=== PATIENT | male | born 1950 | race Caucasian/White ===

== ENCOUNTER 2016-12-31 15:16 | Emergency (ER) | payer MEDICARE, MEDICAID ==
[2016-12-31 15:42] VITALS: BP 130/85
[2016-12-31] MEDS ORDERED: ALBUTEROL SULFATE/IPRATROPIUM 3 ML NEBU IH ONE ×2 (15:42→15:46)
--- NOTE | 2016-12-31 15:51 | ERNOTE ---
Dyspnea - Date Date of Service: 12/31/16 - General Presenting Symptoms: shortness of breath Source: patient Exam Limitations: no limitations - Immun/Allergies/Home Medications Immunizations: IMMUNIZATION HX Immunizations Up to Date Yes History of Influenza Vaccine No Hx Pneumococcal Vaccination No Allergies/Adverse Reactions: Allergies No Known Allergies Allergy (Verified 12/31/16 15:42) Home Medications: HOME MEDICATIONS Atorvastatin Calcium [Lipitor] 40 mg PO HS 10/01/15 [Last Taken Unknown] Lisinopril [Zestril] 20 mg PO DAILY 10/01/15 [Last Taken Unknown] Venlafaxine HCl [Effexor Xr] 375 mg PO DAILY 10/13/15 [Last Taken Unknown] traZODone HCL [Desyrel] 150 mg PO HS 10/13/15 [Last Taken Unknown] ALPRAZolam [Xanax] 0.5 mg PO BID PRN #0 tablet 10/14/15 [Last Taken Unknown] Aspirin [Aspirin Enteric Coated] 325 mg PO DAILY #30 tablet. 10/14/15 [Last Taken Unknown] Loperamide HCl [Imodium] 4 mg PO QID PRN #0 capsule 10/14/15 [Last Taken Unknown ] Metoprolol Tartrate [Lopressor] 25 mg PO BID #60 tab 10/14/15 [Last Taken Unknown] Proair Hfa 2 puff PO Q6H #1 10/14/15 [Last Taken Unknown] Sandostatin Lr 20 mg IM Q30D 10/14/15 [Last Taken Unknown] hydrOXYzine HCL [Atarax] 50 mg PO TID PRN #0 tablet 10/14/15 [Last Taken Unknown ] Oxycodone HCl/Acetaminophen [Oxycodone-Acetaminophen 5-325] 1 each PO Q6H PRN # 10 tablet 03/01/16 [Last Taken Unknown] Albuterol Sulfate/Ipratropium [Duoneb 2.5-0.5MG/3ML Soln] 3 ml IH Q4H PRN #150 vial 12/31/16 [Last Taken Unknown] Doxycycline Monohydrate 100 mg PO BID #20 tablet 12/31/16 [Last Taken Unknown] predniSONE [Prednisone] 3 tab PO DAILY #9 tab 12/31/16 [Last Taken Unknown] - History of Present Illness Narrative: Pt. comes in with c/o SOB for four months that is worsening. Pt. had a thoracotomy for a bleb and pleural effusion. Pt. denies any chest pain, fever, rhinorrhea, NVD, alleviating factors or aggravating factors. Pt. states that he takes his pro air and symbicort every one to two hours and is using one inhaler of each every 3-4 days without improvement. Review of Systems - Review of Systems Constitutional: Present: no symptoms reported. Absent: weakness, fatigue, malaise EYE: Present: no symptoms reported ENT: Present: no symptoms reported Respiratory: Present: shortness of breath, wheezing Cardiology: Present: no symptoms reported. Absent: chest pain, palpitations, edema Gastrointestinal/Abdominal: Present: no symptoms reported. Absent: nausea, vomiting, diarrhea Genitourinary: Present: no symptoms reported. Absent: frequency, decreased urinary output Musculoskeletal: Present: no symptoms reported. Absent: back pain, joint pain Skin: Present: no symptoms reported. Absent: rash, change in color Neurological: Present: no symptoms reported. Absent: headache, dizziness/light- headedness, numbness, tingling All Other Systems: All systems neg except as marked - Patient's Past Medical History Patient History - Medical: Anemia Patient History - Cardiac/Respiratory: COPD Patient History - Cancer: Colon, Surgical Treatment Patient History - Surgical Procedures: Appendectomy, Cholecystectomy, Colon Resection, T & A Patient History - Other: None - Family History Mother Family History - Medical: , No pertinent hx Family History - Cardiac/Respiratory: Coronary Heart Disease Father Family History - Medical: , No pertinent hx Family History - Cardiac/Respiratory: No pertinent hx - Social History Living Situations: home Abuse History: No History of abuse Psych History: No pertinent hx Smoking Status: Current every day smoker Alcohol Use: none Drug Use: none - Immunizations Immunizations Up to Date: Yes Hx Pneumococcal Vaccination: No History of Influenza Vaccine: No Physical Exam - Physical Exam General Appearance: Present: wd/wn, alert, no apparent distress Eye Exam: Normal inspection: bilateral, PERRL: bilateral, EOMI: bilateral Ears, Nose, Throat: Present: normal ENT inspection, normal pharynx Neck: Present: normal inspection, nontender. Absent: lymphadenopathy (R), lymphadenopathy (L) Respiratory: Present: no respiratory distress, no accessory muscle use, chest nontender, decreased breath sounds - R lung. Absent: crackles, rales, rhonchi, wheezing Cardiovascular/Chest: Present: regular rate, rhythm, no murmur, normal peripheral pulses Gastrointestinal/Abdominal: Present: normal bowel sounds, nontender, nondistended, soft, no organomegaly Back Exam: Present: normal inspection, normal range of motion, no CVA tenderness , no vertebral tenderness Extremity Exam: Present: normal inspection Neurological Exam: Present: alert, oriented, normal mood/affect, no motor/ sensory deficits Skin Exam: Present: normal color, warm/dry. Absent: pallor, skin rash ED Progress - Date and Time Seen: Date and Time: 12/31/16 18:17 Pt. 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 - Results and Orders Patient's Lab Results:: I have reviewed the patient's lab results. Results and Orders: elevated D Dimer - Vital Signs Patient's Vital Signs:: I have reviewed the patient's vital signs. Vital Signs: Vital Signs 12/31/16 15:38 Temperature 35.6 C L Pulse Rate 102 H Respiratory 20 Rate Blood Pressure 130/85 O2 Sat by Pulse 96 Oximetry - EKG EKG: NSR, nonspecific ST T wave changes EKG read: Interp. by me EKG Comments: no acute. - X-Ray X-Ray #1 X-Ray: chest Interpretation: Reviewed by me X-ray Comments: stable findings of lung scarring, pleural thickening, air filled cystlike cavity over R lung base near costophrenic angle, trace L sided pleural effusion unchanged - CT/Ultrasound CT/Ultrasound Narrative: CT without pulmonray embolus. Moderate L sided pleural effusion - Progress/Reassessment Chief Complaint: Dyspnea Progress:: Unchanged Departure Clinical Impression: Pleural effusion, Dehydration, mild COPD (chronic obstructive pulmonary disease) Qualifiers: COPD type: unspecified COPD Qualified Code(s): J44.9 - Chronic obstructive pulmonary disease, unspecified - Departure Disposition: Home self-care Condition: Good Instructions: Pleural Effusion, Chronic Obstructive Pulmonary Disease, Easy-to- Read Additional Instructions: Increase fluid intake. 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 Call tomorrow am for these appointments. Referrals: Morris Echevarria MD [Primary Care Provider] - Prescriptions: Albuterol Sulfate/Ipratropium [Duoneb 2.5-0.5MG/3ML Soln] 3 ml IH Q4H PRN #150 vial PRN Reason: Wheezing Doxycycline Monohydrate 100 mg PO BID #20 tablet predniSONE [Prednisone] 3 tab PO DAILY #9 tab
--- OUTSIDE RECORDS SUMMARY | 2016-12-31 15:57 | XMS REPORT | Continuity of Care Document ---
:1950 Author Organization [facility] ([facility]) [place] [address] Phone [phone] Care Team Providers Name Role Phone EvanDariusMatthew Morris Primary Care Provider [phone] Source Comments This disclosure is being made pursuant to the Care Everywhere program, applicable federal and state laws, and may not contain all informaitonavailable regarding this patient.[facility] ([facility]) Active Allergies and Adverse Reactions No Known Allergies Current Medications Prescription Sig. Disp. Refills Start Date End Date Status lisinopril 20 mg Take 20 mg by mouth Active tablet daily. octreotide inject 5 mL 20 mL 11 04/24/2013 Active (SandoSTATIN LAR intramuscularly once. DEPOT) 20 mg Take every four injection weeks. Indications: CARCINOID SYNDROME ALPRAZolam 0.5 mg Take 0.5 mg by mouth 0 09/14/2015 Active tablet 2 times daily as needed. venlafaxine 150 mg Take 300 mg by mouth 3 09/30/2015 Active XR capsule daily. venlafaxine 75 mg Take 75 mg by mouth 3 09/29/2015 Active XR capsule daily. aspirin 325 mg EC Take 325 mg by mouth Active tablet daily. naproxen sodium Take 220 mg by mouth Active (ALEVE) 220 mg 2 times daily as tablet needed. atorvastatin 40 mg Take 40 mg by mouth Active tablet daily. albuterol 90 Use 2 Puffs by Active mcg/Actuation inhalation every 6 inhaler hours as needed. metoPROLol tartrate Take 25 mg by mouth 2 Active 25 mg tablet times daily. budesonide-formoter Use 2 Puffs by Active ol (SYMBICORT) inhalation 2 times 160-4.5 daily. mcg/Actuation inhaler acetaminophen 325 Take 2 tablets (650 60 tablet 2 07/18/2016 Active mg tablet mg total) by mouth every 4 hours. Carica Papaya Take 3 tablets by 90 tablet 11 10/01/2016 Active (PAPAYA ENZYME) tab mouth 3 times daily before meals. pancrelipase (CREON Take 1 capsule by 90 capsule 11 11/04/2016 Active 12,000) mouth 3 times daily 12,000-38,000 with meals. 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, unspecified 11/28/20082011 portion Abdominal pain, unspecified site 07/09/2008 04/05/2012 Malignant neoplasm of colon, unspecified site 07/03/2008 04/05/2012 Most Recent Encounters Date Type Specialty Providers Description 12/17/2016 Office Visit Med Hematology and Narciso Howard Chief Comp: Patient Oncology MD Reported Reason For Geri Jenkins Visit MD Eduardo 11/10/2016 Refill Hematology and Laura Montes Chief Comp: Medication Oncology A Change 11/04/2016 Office Visit [facility]io Colon and Narciso Howard Dx: Pancreatic Oncology insufficiency (Primary Dx) 11/04/2016 [place] [facility] Dx: Carcinoid tumor Kobe Mckeon MD 11/04/2016 Hospital Radiology Jitendra Granados Chief Comp: Patient Encounter MD Graeme Reported Reason For Visit 11/03/2016 Hospital Radiology Narciso Howard Chief Comp: Patient Encounter Reported Reason For Visit 11/03/2016 Hospital Radiology Jitendra Granados Dx: Neuroendocrine Encounter MD Graeme malignancy 11/03/2016 Hospital Radiology Morris Freitas Dx: Carcinoid tumor Encounter 11/03/2016 Office Visit Med Hematology and Narciso Howard Dx: Carcinoid tumor Oncology 10/19/2016 Telephone Med Hematology and Danielle Lovett Chief Comp: Oncology Information Before Appointment 10/14/2016 [place] [facility] Narciso, Chief Comp: Patient MD Reported Reason For Kobe Pablo MD Visit 10/14/2016 Office Visit Med Hematology and Narciso Howard Chief Comp: Patient Oncology MD Reported Reason For Visit 10/08/2016 [facility] Chief Comp: Scheduling 10/06/2016 [facility] Chief Comp: Error 10/05/2016 Telephone [facility]dy Dx: Neuroendocrine D, RN malignancy (Primary Dx) Immunizations Name Dates Previously Given Next Due Influenza, unspecified 09/17/2008 Pneumococcal Polysaccharide, PPSV23 (Pneumovax 23) 07/16/2016 Social History Tobacco Use Types Packs/Day Years Used Date Current Every Day Smoker Cigarettes 0.25 30 Smokeless Tobacco: Never Used Tobacco Cessation:Ready to Quit: No Comments: Alcohol Use Drinks/Week oz/Week Comments No Last Filed Vital Signs Vital Sign Reading Time Taken Blood Pressure 140/88 11/04/2016 3:41 PM [employer] Pulse 79 11/04/2016 3:41 PM [employer] Temperature 36.7 C (98.1 F) 11/04/2016 3:41 PM [employer] Respiratory Rate 17 10/01/2016 12:37 PM [employer] Height 1.778 m (5' 10") 11/03/2016 9:10 AM [employer] Weight 63.9 kg (140 lb 14 oz) 11/04/2016 3:41 PM [employer] Body Mass Index 20.21 11/04/2016 3:41 PM [employer] Oxygen Saturation 97% 11/04/2016 3:41 PM [employer] Plan of Care Health Maintenance Due Date Last Done Comments Hepatitis B Vaccine (1 of 3 - Primary Series) 1950 Tdap Vaccine 1963 Lipid Disorder Screening 1970 Td Vaccine 1970 Prostate Cancer Screening 06/25/2009 06/25/2008 Zoster Vaccine 2012 Influenza Vaccine: Seasonal (#1) 06/01/2016 09/17/2008 Pneumococcal Vaccine (2 of 3 - PCV13) 07/16/2017 07/16/2016 Colonoscopy 12/03/2025 12/03/2015 HCV Screening Completed 01/10/2009 Results from Last 3 Months NUC TUMOR W.BODY (2-DAY) SPECT/CT IN-111 OCTREO ([id number]) (11/04/2016 2:31 PM) Impressions Impression: 1. Extensive abdominal metastatic disease with grade 4 uptake, including RLQ small bowel masses (near anastomotic surgical bed), right external iliac and peripancreatic lymph nodes, suspected peritoneal implants along liver dome. 2. Thoracic metastatic disease with grade 4 uptake, including right cardiophrenic and multiple bilateral (right greater than left) mediastinal lymph nodes. Narrative Procedure: NUC TUMOR W.BODY (2-DAY) SPECT/CT IN-111 OCTREO ([id number]) Octreoscan Single Photon Emission Computed Tomography. Indication: Patient with neuroendocrine malignancy. Stage disease.. Additional history per Epic-right lung decortication Procedure: Approximately 4 hrs after administration of In-111 Pentetreotide 5.24 mCi IV on 11/03/2016, anterior and posterior whole body planar images were obtained along with SPECT imaging of the abdomen. After a 24 hr uptake period, additional whole body planar images were acquired along with SPECT-CT imaging of the chest, abdomen, and pelvis. Low dose CT images were used for anatomic correlation and attenuation correction. Comparison: CT chest abdomen and pelvis from November 03, 2016. Findings: Extensive disease with grade 4 radiotracer uptake is seen in the abdomen and mediastinum. Specifically, abdomen shows small bowel lesions in the right lower quadrant (RLQ) and around anastomotic changes, enlarged peripancreatic and right external iliac lymph nodes, as well as several foci of uptake consistent with peritoneal implants along the dome of the liver. Chest specifically shows several lymph nodes along the right internal thoracic chain, as well as right cardiophrenic, right upper paratracheal, and left interval thoracic chain lymph nodes. Postsurgical changes are also redemonstrated with right pulmonary parenchymal volume loss and pneumothorax. Procedure Note Jerald, Incoming Imaging Results - [facility] Nov 05, 2016 11:50 AM [employer] Procedure: NUC TUMOR W.BODY (2-DAY) SPECT/CT IN-111 OCTREO ([id number]) Octreoscan Single Photon Emission Computed Tomography. Indication: Patient with neuroendocrine malignancy. Stage disease.. Additional history per Epic-right lung decortication Procedure: Approximately 4 hrs after administration of In-111 Pentetreotide 5.24 mCi IV on 11/03/2016, anterior and posterior whole body planar images were obtained along with SPECT imaging of the abdomen. After a 24 hr uptake period, additional whole body planar images were acquired along with SPECT-CT imaging of the chest, abdomen, and pelvis. Low dose CT images were used for anatomic correlation and attenuation correction. Comparison: CT chest abdomen and pelvis from November 03, 2016. Findings: Extensive disease with grade 4 radiotracer uptake is seen in the abdomen and mediastinum. Specifically, abdomen shows small bowel lesions in the right lower quadrant (RLQ) and around anastomotic changes, enlarged peripancreatic and right external iliac lymph nodes, as well as several foci of uptake consistent with peritoneal implants along the dome of the liver. Chest specifically shows several lymph nodes along the right internal thoracic chain, as well as right cardiophrenic, right upper paratracheal, and left interval thoracic chain lymph nodes. Postsurgical changes are also redemonstrated with right pulmonary parenchymal volume loss and pneumothorax. IMPRESSION Impression: 1. Extensive abdominal metastatic disease with grade 4 uptake, including RLQ small bowel masses (near anastomotic surgical bed), right external iliac and peripancreatic lymph nodes, suspected peritoneal implants along liver dome. 2. Thoracic metastatic disease with grade 4 uptake, including right cardiophrenic and multiple bilateral (right greater than left) mediastinal lymph nodes. CT CHEST ABDOMEN PELVIS W CONTRAST ([id number], [id number]) (11/03/2016 10:35 AM) Impressions Impression: 1. Interval evacuation of previous right pleural effusion, moderate sized loculated right pneumothorax still remains compared to chest CT of 07/03/2016.. 2. New small left pleural effusion. 3. Persistent groundglass nodules in the right lung and left upper lobe may be infectious or metastatic. 4. Stable right pleural and pericardial metastases. 5. Differential perfusion abnormality versus areas of fatty infiltration in both lobes of liver. 6. Stable suspected metastatic lesion in the right hepatic lobe. Previous suspected metastatic lesion in segment 4A less conspicuous. 7. Interval mild increase in size in peritoneal carcinomatosis at the inferior tip of the liver and along the right lower quadrant. 8. Slightly larger mesenteric lymphadenopathy. 9. Right hemicolectomy. Narrative Procedure: CT CHEST ABDOMEN PELVIS W CONTRAST ([id number], [id number]) Clinical Indication: Ileal carcinoid. Rule out progression. Pleural-based nodules. Metastatic to multiple sites. Right pleural effusion and possible lung nodules History of right hydropneumothorax and chest tube. Technique: CT exam of the chest, abdomen, and pelvis is performed following the uneventful administration of 123 cc Isovue-370 IV contrast. No enteric contrast.Biphasic liver protocol is performed. Comparison: CT abdomen and pelvis 04/08/2016. Most recent chest CT 07/03/2016. Findings: Neck base and axilla: No lymphadenopathy. Mediastinum and ez: No lymphadenopathy. Heart and thoracic aorta: Stable enlarged enhancing pericardial lymph nodes. Airway: Patent ungs and pleura: Compared to prior chest CT of July 03, 2016, there is a loculated right pneumothorax laterally and at the right lung apex. No significant right pleural effusion. There is extensive right pleural thickening. Scarring andfibrosis peripherally along the right lung but previous consolidation in the right lung base has improved. Persistent small nodules measuring up to 5 mm in the right upper lobe. Persistent nodular thickening in the left upper lobe. New small left pleural effusion. Stable 2.4 cm enhancing pleural-based nodule. Series 6, image 73. Esophagus: Normal. Chest wall soft tissues: Normal Liver: Differential perfusion enhancement throughout the liver that normalizes on the delays. Stable 1.2 cm enhancing lesion in the inferior right hepatic lobe segment 6. Series 2, image 43 partially obscured by the adjacent differential enhancement. Previous segment 4A enhancing lesion not well seen on the current exam. Increased enhancing soft tissue at the inferior tip of the right hepatic lobe. Series 6, image 134, measuring 2.4 x 2.7 cm. Bile ducts: Not dilated. Gallbladder: Surgically absent Pancreas: Normal Spleen: Normal Adrenal glands: Normal Kidneys: Stable left renal cyst. Ureters: Normal Bladder: Normal Aorta: Nonaneurysmal Retroperitoneum: Larger portacaval node measuring 1 cm, prior measuring 0.8 cm. Peritoneum: Slightly larger peritoneal soft tissue mass anteriorly measuring 3.2 x 5 cm, prior measuring 3.4 x 4.2 cm. Series 6, image 158. Other enhancing peritoneal nodules extending from the falciform ligament of the liver inferiorly are also slightly larger. Other small peritoneal nodules in the left lower quadrant also slightly larger. No large volume ascites. Mesentery: Mildly enlarged mesenteric lymphadenopathy , slightly larger. Stomach: Not distended. Small bowel: Right hemicolectomy with normal appearance of the anastomosis. Peritoneal nodules again noted adjacent to the anastomosis. Small bowel is not dilated. Colon: Decompressed. Appendix: Surgically absent. Extraperitoneal pelvis: Larger right external iliac lymphadenopathy, largest measuring 1.5 cm short axis, prior measuring 1.2 cm short axis. Prostate: Enlarged Abdominal wall: Normal Bones: Postsurgical changes of thoracotomy in posterior right 8th rib. No acute fracture. Procedure Note Jerald, Incoming Imaging Results - Tue Nov 03, 2016 1:45 PM [employer] Procedure: CT CHEST ABDOMEN PELVIS W CONTRAST ([id number], [id number]) Clinical Indication: Ileal carcinoid. Rule out progression. Pleural-based nodules. Metastatic to multiple sites. Right pleural effusion and possible lung nodules History of right hydropneumothorax and chest tube. Technique: CT exam of the chest, abdomen, and pelvis is performed following the uneventful administration of 123 cc Isovue-370 IV contrast. No enteric contrast.Biphasic liver protocol is performed. Comparison: CT abdomen and pelvis 04/08/2016. Most recent chest CT 07/03/2016. Findings: Neck base and axilla: No lymphadenopathy. Mediastinum and ez: No lymphadenopathy. Heart and thoracic aorta: Stable enlarged enhancing pericardial lymph nodes. Airway: Patent ungs and pleura: Compared to prior chest CT of July 03, 2016, there is a loculated right pneumothorax laterally and at the right lung apex. No significant right pleural effusion. There is extensive right pleural thickening. Scarring and fibrosis peripherally along the right lung but previous consolidation in the right lung base has improved. Persistent small nodules measuring up to 5 mm in the right upper lobe. Persistent nodular thickening in the left upper lobe. New small left pleural effusion. Stable 2.4 cm enhancing pleural-based nodule. Series 6, image 73. Esophagus: Normal. Chest wall soft tissues: Normal Liver: Differential perfusion enhancement throughout the liver that normalizes on the delays. Stable 1.2 cm enhancing lesion in the inferior right hepatic lobe segment 6. Series 2, image 43 partially obscured by the adjacent differential enhancement. Previous segment 4A enhancing lesion not well seen on the current exam. Increased enhancing soft tissue at the inferior tip of the right hepatic lobe. Series 6, image 134, measuring 2.4 x 2.7 cm. Bile ducts: Not dilated. Gallbladder: Surgically absent Pancreas: Normal Spleen: Normal Adrenal glands: Normal Kidneys: Stable left renal cyst. Ureters: Normal Bladder: Normal Aorta: Nonaneurysmal Retroperitoneum: Larger portacaval node measuring 1 cm, prior measuring 0.8 cm. Peritoneum: Slightly larger peritoneal soft tissue mass anteriorly measuring 3.2 x 5 cm, prior measuring 3.4 x 4.2 cm. Series 6, image 158. Other enhancing peritoneal nodules extending from the falciform ligament of the liver inferiorly are also slightly larger. Other small peritoneal nodules in the left lower quadrant also slightly larger. No large volume ascites. Mesentery: Mildly enlarged mesenteric lymphadenopathy , slightly larger. Stomach: Not distended. Small bowel: Right hemicolectomy with normal appearance of the anastomosis. Peritoneal nodules again noted adjacent to the anastomosis. Small bowel is not dilated. Colon: Decompressed. Appendix: Surgically absent. Extraperitoneal pelvis: Larger right external iliac lymphadenopathy, largest measuring 1.5 cm short axis, prior measuring 1.2 cm short axis. Prostate: Enlarged Abdominal wall: Normal Bones: Postsurgical changes of thoracotomy in posterior right 8th rib. No acute fracture. IMPRESSION Impression: 1. Interval evacuation of previous right pleural effusion, moderate sized loculated right pneumothorax still remains compared to chest CT of 07/03/2016.. 2. New small left pleural effusion. 3. Persistent groundglass nodules in the right lung and left upper lobe may be infectious or metastatic. 4. Stable right pleural and pericardial metastases. 5. Differential perfusion abnormality versus areas of fatty infiltration in both lobes of liver. 6. Stable suspected metastatic lesion in the right hepatic lobe. Previous suspected metastatic lesion in segment 4A less conspicuous. 7. Interval mild increase in size in peritoneal carcinomatosis at the inferior tip of the liver and along the right lower quadrant. 8. Slightly larger mesenteric lymphadenopathy. 9. Right hemicolectomy. HEMOGLOBIN A1C (11/03/2016 9:26 AM) Component Value Range Hemoglobin A1c 6.3(H)Comment: 4.8-6.0 % Glycemic Control Guidelines: Non-diabetic <6% Goal <7% Therapeutic Action >8% Estimated Average Glucose 134Comment: mg/dL The estimated average glucose (eAG) calculated from the HbA1c changed on 20/06.See Laboratory Bulletins in the Department of Pathology Laboratory Services Handbook for a full discussion.Not e that the new calculated glucose will now be lower.The A1c result is unchanged. Specimen Supernatant DIFFERENTIAL (11/03/2016 9:25 AM) Component Value Range % Neutrophils-Auto Diff 62.6 % Neutrophils-Auto Diff 6540 1773-4084 /MM3 % Lymphocytes-Auto Diff 17.5 % Lymphocytes-Auto Diff 1977 460-9306 /MM3 % Monocytes-Auto Diff 8.3 % Monocytes-Auto Diff 870(H) 130-860 /MM3 % Eosinophils-Auto Diff 10.8 % Eosinophils-Auto Diff 1130(H) 40-390 /MM3 % Basophils 0.5 % Basophils-Auto Diff 50 10-136 /MM3 % Immature Granulocytes-Auto Diff 0.3 % Immature Granulocytes-Auto Diff 30 /MM3 Specimen Blood CBC (COMPLETE BLOOD COUNT) (11/03/2016 9:25 AM) Component Value Range WBC Count 10.5 3.7-10.5 K/MM3 RBC Count 4.55 4.50-6.20 M/MM3 Hemoglobin 11.6(L) 13.2-17.7 g/dL Hematocrit 37(L) 40-52 % MCV (Mean Corpuscular Volume) 82 82-99 FL MCH (Mean Corpuscular Hemoglobin) 26 25-35 PG MCHC (Mean Corpuscular Hemoglobin Concentration) 31(L) 32-36 % Platelet Count 406(H) 150-400 K/MM3 MPV (Mean Platelet Volume) 9.4 9.4-12.3 FL RBC Dist Width-STD 48.4(H) 35.1-43.9 FL RBC Distrib Width 16.0(H) 9.0-14.5 % Nucleated RBC 0 /100 WBC Specimen Blood VITAMIN D, 25-HYDROXY (11/03/2016 9:25 AM) Component Value Range Vitamin D, 25-OH 20Comment: 20-80 ng/mL This assay accurately quantifies the sum of 25-hydroxyvitamin D3 and 25- hydroxyvitamin D2. Endocrine Society, [place] [employer] (IOM), and World Health Organization (WHO) guidelines designate 25-h ydroxyvitamin D plasma concentrations below 20 ng/mL as deficient, based on increased frequency of adverse outcomes (e.g., osteoporotic fractures). 25-Hydroxyvitamin D reference ranges are a controversial topic, with some authorities suggesting optimal concentrations should be 30 ng/mL or higher based on correlations of 25-hydroxyvitamin D plasma concentrations with physiological parameters such as parathyroid hormone or calcium concentrations. However, optimal 25-hydroxyvitamin D concentrations greater than 20 ng/mL may be considered for specific disease conditions. Vitamin D toxicity is uncommon but may be seen at 25-hydroxyvitamin D concentrations greater than 150 ng/mL. Specimen Blood OCTREOTIDE DRUG LEVEL (11/03/2016 9:25 AM) Component Value Range Octreotide 727Comment:This is an appended report. These results have been pg /mL appended to a previously final verified report. Octreotide OCTREOTIDE/SANDOSTATIN: 727 pg/mL (Plasma/Serum) Expected levels of Octreotide administered by pump: 60 mg/month: 10,000 pg/mL +/-2,500 pg/mL 30 mg/month: 5,000 pg/mL +/-2,500 pg/mL Octreotide administered as Sandostatin LAR: 120 mg/month: 9,000 pg/mL +/-2,000 pg/mL 60 mg/month: 5,000 pg/mL +/-2,000 pg/mL 30 mg/month: 2,500 pg/mL +/-1,500 pg/mL Octreotide administered by subcutaneous injection: Measurement of plasma Octreotide is not recommended for individuals using multiple daily Octreotide injections due to the short 1/2 life of Octreotide in the plasma ( approximately 90 - 120 minutes). Disclaimer: The choice of a specific dose of Octreotide is at the discretion of the individual treating physician. And should take into account the patient' s individual clinical situation. This test was developed and its performance characteristics determined by [employer]. It has not been cleared or approved by the U.S.Food and Drug Administration. The FDA has determined that such clearance or approval is not necessary. Sandostatin is a registered trademark of [employer]. Analysis performed by [employer], [address] [place] [address]. [id number] Specimen Blood PANCREASTATIN (11/03/2016 9:25 AM) Component Value Range Pancreastatin 835(H)Comment: 10-135 pg/mL This test was developed and its performance characteristics determined by [employer]. It has not been cleared or approved by the US Food and Drug Administration. The FDA has determined that such clearance or approval is not necessary. Specimen Blood SEROTONIN, BLOOD (11/03/2016 9:25 AM) Component Value Range Serotonin, Blood 1384(H)Comment: 50-200 ng/mL TEST INFORMATION:Serotonin Whole Blood Test developed and characteristics determined by [facility]. See Compliance Statement B: [employer] Performed by [facility], [address] [place] [id number] [email or web address], Can Hoskins MD, Lab. Director Specimen Blood Narrative Source: BLOOD Client Accession number: [id number] NEUROKININ A (SUBSTANCE K) (11/03/2016 9:25 AM) Component Value Range Neurokinin A (Substance K) 25Comment: <=40 pg/mL This test was developed and its performance characteristics determined by [employer]. It has not been cleared or approved by the US Food and Drug Administration. The FDA has determined that such clearance or approval is not necessary. Specimen Blood CHROMOGRANIN A (11/03/2016 9:25 AM) Component Value Range Chromogranin A 2090(H)Comment: 0-95 ng/mL INTERPRETIVE INFORMATION:Chromogranin A This test is performed using the PWA [id number] kit. Results obtained with different methods or kits cannot be used interchangeably. See Compliance Statement D: [employer]/ Performed by [facility], [address] [place] [id number] [email or web address], Can Hoskins MD, Lab. Director Specimen Blood Narrative Source: BLOOD Client Accession number: [id number] TRIIODOTHYRONINE - FREE (11/03/2016 9:25 AM) Component Value Range T3, Free 1.97(L) 2.57-4.43 pg/mL Specimen Blood THYROXINE - FREE (11/03/2016 9:25 AM) Component Value Range Free T4 (Thyroxine) 1.06 0.80-1.80 ng/dL Specimen Blood THYROID STIMULATING HORMONE (11/03/2016 9:25 AM) Component Value Range TSH 1.82 0.27-4.20 IU/mL Specimen Blood CBC WITH DIFFERENTIAL (11/03/2016 9:25 AM) Specimen Blood Narrative The following orders were created for panel order CBC WITH DIFFERENTIAL. Procedure Abnormality Status --------- ------ CBC (COMPLETE BLOOD COUNT)[[id number]] AbnormalFinal result DIFFERENTIAL[[id number]] AbnormalFinal result Please view results for these tests on the individual orders. CHLORIDE (11/03/2016 9:25 AM) Component Value Range Chloride 102 95-107 mEq/L Specimen Blood BLOOD UREA NITROGEN (11/03/2016 9:25 AM) Component Value Range BUN 13 10-20 mg/dL Specimen Blood ASPARTATE AMINOTRANSFERASE (11/03/2016 9:25 AM) Component Value Range AST 11Comment: 0-40 U/L Adult reference ranges updated on 09/26/13 at 830am Specimen Blood ALANINE AMINOTRANSFERASE (11/03/2016 9:25 AM) Component Value Range ALT 6Comment: 0-41 U/L The upper limit of normal for alanine aminotransferase (ALT) reference ranges for adults is controversial with some authorities recommending limit as low as 30 U/L for males and 19 U/L for females. Th ere is increased incidence of subclinical liver disease (e.g., early steatohepatitis) in patients with ALT values in the range of 31-41 U/L for males and 20-33 U/L for females. ALT values should alway s be interpreted in conjunction with clinical history, physical examination findings, and, if applicable, data from other diagnostic tests. Specimen Blood SODIUM (11/03/2016 9:25 AM) Component Value Range Sodium 144 135-145 mEq/L Specimen Blood TOTAL PROTEIN (11/03/2016 9:25 AM) Component Value Range Total Protein 8.2(H) 6.0-8.0 g/dL Specimen Blood POTASSIUM (11/03/2016 9:25 AM) Component Value Range Potassium 4.4 3.5-5.0 mEq/L Specimen Blood ALKALINE PHOSPHATASE (11/03/2016 9:25 AM) Component Value Range ALP 94 40-129 U/L Specimen Blood GLUCOSE (11/03/2016 9:25 AM) Component Value Range Glucose 132(H)Comment: 65-99 mg/dL The Expert Committee on the Diagnosis and Classification of Diabetes has defined impaired fasting glucose as greater than or equal to 100 mg/dL but less than 126 mg/dL.(Diabetes Care 28 (Suppl 1)S41,2005) Specimen Blood CREATININE (11/03/2016 9:25 AM) Component Value Range Creatinine 1.3(H)Comment: 0.6-1.2 mg/dL Creatinine switched to enzymatic method on 03/10/2011.GFR equation switched to IDMS-traceable MDRD equation on 03/10/2011. Calculated GFR values are not valid in clinical settings where serum creatinine is changing. Calculated GFR 56(L) >60 mL/min/1.73 m2 Specimen Blood CO2 (11/03/2016 9:25 AM) Component Value Range CO2 27 22-29 mEq/L Anion Gap 15 8-18 mEq/L Specimen Blood CALCIUM (11/03/2016 9:25 AM) Component Value Range Calcium 9.3 8.5-10.5 mg/dL Specimen Blood BILIRUBIN, TOTAL (11/03/2016 9:25 AM) Component Value Range Bilirubin Total 0.4 <=1.2 mg/dL Specimen Blood ALBUMIN (11/03/2016 9:25 AM) Component Value Range Albumin 3.9 3.4-4.8 g/dL Specimen Blood
[2016-12-31 16:05] LABS: Hematocrit 38.3 % (42.0-52.0); Mean Cell Volume 81.1 fl (78-100); Mean Corpuscular Hemoglobin 25.4 pg (27-31); Mean Corpuscular Hgb Conc 31.3 g/dl (32-36); Mean Platelet Volume 9.2 fl (6.0-9.5); Neutrophil % 68.5 % (42-75.0); Platelet Count 397 K/mm3 (150-450); Red Blood Count 4.72 M/mm3 (4.7-6.0); Red Cell Distribution Width 16.6 % (11.5-14.0); White Blood Count 10.2 K/mm3 (4.0-10.5)
[2016-12-31 16:20] LABS: Albumin * 3.3 gm/dl (3.4-5.0); Anion Gap 16.2 mmol/L (6.8-13.8); BUN/Creatinine Ratio 15.2 (9.0-21.6); Bilirubin, Total 0.7 mg/dL (0.0-1.1); Ca. Corrected For Albumin 9.7 mg/dL (8.4-10.2); Calcium * 9.5 mg/dL (7.9-10.9); Carbon Dioxide 27.8 mmol/L (24-32.6); Total Protein 8.9 gm/dL (6.2-8.2)
[2016-12-31] MEDS ORDERED: NORMAL SALINE 1,000 ML IV ONE (16:43)
== END 2016-12-31 18:34 | disposition home or self-care (01) ==
LOC: ER 15:16
DX: J90 Pleural effusion, not elsewhere classified (principal); Z72.0 Tobacco use; E86.0 Dehydration; J44.9 Chronic obstructive pulmonary disease, unspecified; Z85.038 Personal history of other malignant neoplasm of large intestine

== ENCOUNTER 2017-01-23 11:18 | Emergency (ER) | payer MEDICARE, MEDICAID ==
[2017-01-23] MEDS ORDERED: MORPHINE SULFATE 10 MG/0.5 ML SYRINGE PO ONE ×2 (11:45→12:32)
--- OUTSIDE RECORDS SUMMARY | 2017-01-23 11:46 | XMS REPORT | Continuity of Care Document ---
:1950 Author Organization [facility] ([facility]) [place] [address] Phone [phone] Care Team Providers Name Role Phone Morris Mccollum Primary Care Provider [phone] Source Comments This disclosure is being made pursuant to the Care Everywhere program, applicable federal and state laws, and may not contain all informaitonavailable regarding this patient.[facility] ([facility]) Active Allergies and Adverse Reactions No Known [...] 12,000-38,000 with meals. -60,000 unit EC capsule tiotropium Use 1 capsule by 30 capsule 11 01/14/2017 Active (SPIRIVA) 18 mcg inhalation daily. inhalation capsule Active Problems Problem Noted Date Pleural [...] Recent Encounters Date Type Specialty Providers Description 01/21/2017 Telephone Med Pulmonary Leida Lancaster Chief Comp: Return Dionne Clark MD Call 01/21/2017 Telephone Med Pulmonary Dionne Mendoza MD 01/19/2017 Telephone Med Pulmonary Leida Lancaster Chief Comp: Discuss Dionne Clark MD Recommendations 01/18/2017 Orders/Notes Cancer Center Dionne Mendoza MD 01/14/2017 [facility] Radiology Edison Hanson Dx: Pancreatic Encounter MD Brad insufficiency 01/14/2017 Office Visit Med Hematology and Ana Paula Lyons, Dx: Carcinoid tumor Oncology (Primary Dx) 01/14/2017 Office Visit Med Pulmonary Leida Lancaster Dx: Dyspnea, Oncology Dionne Clark MD unspecified type (Primary Dx) 01/13/2017 Telephone Cancer Center Prince Silverio Chief Comp: Shortness of Breath 01/13/2017 Telephone Cancer [place] Timbo Chief Comp: Alice Lozoya RN Appointment Info 01/06/2017 Hospital Respiratory Therapy Default, Other Dx: Pleural effusion Encounter Billg - Defo (Primary Dx) Jhonny Marquez MD Gross, Thomas J, MD 01/05/2017 [facility] Radiology Paulo Grande, Chief Comp: Patient Encounter MD Reported Reason For Visit 01/05/2017 Orders/Notes Cancer Center Dionne Mendoza MD 01/04/2017 Telephone Cancer Center Leida Lancaster, Chief Comp: Dionne Clark MD Appointment Info 12/17/2016 Office Visit Med Hematology and Narciso Howard, Chief Comp: Patient Oncology Reported Reason For GregoryMarciGeri Visit MD Eduardo 11/10/2016 Refill Hematology and Simon, Chief Comp: Medication Oncology Laura A Change 11/04/2016 Office Visit Med Hematology and Narciso Howard, Dx: Pancreatic Oncology insufficiency (Primary Dx) 11/04/2016 Office Visit Srg Oncology Narciso Howard Dx: Carcinoid tumor Kobe Mckeon MD 11/04/2016 [facility] Radiology DarwinJitendra Jurado Chief Comp: Patient Encounter MD Graeme Reported Reason For Visit 11/03/2016 [facility] Radiology Narciso Howard, Chief Comp: Patient Encounter MD Reported Reason For Visit 11/03/2016 [facility] Radiology [facility] Dx: Neuroendocrine Encounter MD Graeme malignancy 11/03/2016 [facility] Radiology Morris Freitas, Dx: Carcinoid tumor Encounter 11/03/2016 Office Visit Med Hematology and Narciso Howard, Dx: Carcinoid tumor Oncology Immunizations Name Dates Previously Given Next Due Influenza, unspecified 09/17/2008 Pneumococcal Polysaccharide, PPSV23 (Pneumovax 23) 07/16/2016 Social History Tobacco Use Types Packs/Day Years Used Date Current Every Day Smoker Cigarettes 0.25 30 Smokeless Tobacco: Never Used Tobacco Cessation:Ready to Quit: No Comments: Alcohol Use Drinks/Week oz/Week Comments No Last Filed Vital Signs Vital Sign Reading Time Taken Blood Pressure 162/80 01/14/2017 12:24 PM CDT Pulse 87 01/14/2017 12:24 PM CDT Temperature 36.6 C (97.9 F) 01/14/2017 12:24 PM CDT Respiratory Rate 16 01/14/2017 12:24 PM CDT Height 1.778 m (5' 10") 11/03/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 Weight 58 kg (127 lb 13.9 oz) 01/14/2017 12:24 PM CDT Body Mass Index 18.35 01/14/2017 12:24 PM CDT Oxygen Saturation 99% 01/14/2017 12:24 PM CDT Plan of Care Date Type Specialty Providers Description 01/26/2017 Appointment Heart and Vascular Gary Borrero MD Chief Comp: Patient [address] [place] [address] Visit [phone] (Fax) Health Maintenance Due Date Last Done Comments Hepatitis B Vaccine (1 of 3 - Primary Series) 1950 Tdap Vaccine 1963 Lipid Disorder Screening 1970 Td Vaccine 1970 Prostate Cancer Screening 06/25/2010 06/25/2008 Zoster Vaccine 2012 Influenza Vaccine: Seasonal (#1) 06/01/2016 09/17/2008 Pneumococcal Vaccine (2 of 3 - PCV13) 07/16/2017 07/16/2016 Colonoscopy 12/03/2025 12/03/2015 HCV Screening Completed 01/10/2009 Procedures from Last 3 Months Procedure Name Priority Date/Time Associated Comments Diagnosis THORACENTESIS WITH Routine 01/06/2017 11:05 Pleural effusion Results for this ULTRASOUND 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 Results from Last [address] CHEST ABDOMEN PELVIS W CONTRAST ([id number], [id number]) (01/14/2017 11:27 AM)Only the most recent of2 resultswithin the time period is included. Impressions Impression: 1. Stable size of the loculated right pneumothorax. 2. Interval decrease in size of small left pleural effusion. 3. Stable tiny scattered pulmonary nodules, subpleural soft tissue thickening and scarring the bilateral lungs. 4. Stable pericardial, mesenteric root and iliac chain lymphadenopathy, suspected metastasis. Portacaval lymph node, mildly increased in size in the interval, concerning for metastasis. Mild decrease in size of the lymph node adjacent to the hepatic artery. 5. Diffuse hepatic perfusion abnormality with 2 stable suspected metastasis. 6. Peritoneal carcinomatosis with deposits similar in size or mildly larger in the interval. Narrative Procedure: CT CHEST ABDOMEN PELVIS W CONTRAST ([id number], [id number]) Clinical Indication: patient with neuroendocrine tumor please restage dx Technique: CT exam of the chest, abdomen, and pelvis is performed following the uneventful administration of 122 cc Isovue-370 IV contrast.Biphasic liver protocol. Comparison: CT of the chest, abdomen and pelvis dated 11/03/2016 Findings: Neck base and axilla: No lymphadenopathy. Mediastinum and ez: No lymphadenopathy. Heart and thoracic aorta: Small pericardial effusion. A several enlarged pericardial lymph nodes measuring up to 1 cm are stable. Airway: Patent. Lungs and pleura: -Loculated right pneumothorax appears similar in size and extent when compared with prior examination. Extensive pleural thickening is again noted. Peripheral scarring and pleural thickening appears similar in the right lung. Several scattered nodules in the right lung also appears similar, for example a nodule in the paramedian right apex measuring 5 mm (image 10-45) and a 4 mm nodule in the posterior right apex (image 10-47). Subpleural nodule measuring 2.0 x 1.6 cm along the posterior medial right lung appears stable (image 6-72). -Small left-sided pleural effusion has decreased in size in the interval. Patchy areas of subpleural soft tissue thickening measuring up to 2 cm in the left lung appears stable. -No new pulmonary nodules or masses. Esophagus: Normal. Chest wall soft tissues: Normal Liver: Diffuse perfusion abnormality is again seen throughout the liver. 1.4 cm arterial enhancing lesion in segment 5/6 (image 2-42), stable. 0.9 cm lesion in segment 4A/8 (image 2-26), stable. Stable soft tissue along the inferior tip of the right lobe measuring 1.5 x 3.3 cm (image 6-1 29) and along the medial margin of the right lobe measuring up to 2.9 x 1.5 cm (image 6-117, 6-101). Bile ducts: Not dilated. Gallbladder: Surgically absent Pancreas: Normal Spleen: Normal Adrenal glands: Normal Kidneys: Probable left renal cyst. No hydronephrosis. Ureters: Normal Bladder: Decompressed Aorta: Nonaneurysmal Retroperitoneum: Portacaval lymph node measures 1.3 cm (image 6-1 9), measured 1 cm on prior exam. Hepatic artery lymph node measuring up to 0.9 cm (image 6-1 14) measured 1.5 cm previously. Peritoneum: No ascites. Multiple small implants are seen in the pelvis measuring up to 8 mm in thickness, similar or mildly increased measuring up to 6 mm in thickness previously. Multiple omental implants are again noted (image 6-1 28 in left upper quadrant, 6-1 45 mid abdomen), similar. Mesentery: Mildly enlarged mesenteric root lymph nodes measuring up to 1 cm, stable Stomach: Not distended. Small bowel: Right lower quadrant anastomosis, not dilated. Colon: Status post right hemicolectomy, patent anastomosis Appendix: Not visualized Extraperitoneal pelvis: Enlarged iliac chain lymph nodes measuring up to 1.6 cm, stable. Prostate: Moderately enlarged Abdominal wall: Normal Bones: No acute fracture or destructive bone lesion. Degenerative changes in the spine. Procedure Note Jerald, Incoming Imaging Results - Huyen Jan 14, 2017 12:08 PM CDT Procedure: CT CHEST ABDOMEN PELVIS W CONTRAST ([id number], [id number]) Clinical Indication: patient with neuroendocrine tumor please restage dx Technique: CT exam of the chest, abdomen, and pelvis is performed following the uneventful administration of 122 cc Isovue-370 IV contrast. Biphasic liver protocol. Comparison: CT of the chest, abdomen and pelvis dated 11/03/2016 Findings: Neck base and axilla: No lymphadenopathy. Mediastinum and ez: No lymphadenopathy. Heart and thoracic aorta: Small pericardial effusion. A several enlarged pericardial lymph nodes measuring up to 1 cm are stable. Airway: Patent. Lungs and pleura: -Loculated right pneumothorax appears similar in size and extent when compared with prior examination. Extensive pleural thickening is again noted. Peripheral scarring and pleural thickening appears similar in the right lung. Several scattered nodules in the right lung also appears similar, for example a nodule in the paramedian right apex measuring 5 mm (image 10-45) and a 4 mm nodule in the posterior right apex (image 10-47). Subpleural nodule measuring 2.0 x 1.6 cm along the posterior medial right lung appears stable (image 6-72). -Small left-sided pleural effusion has decreased in size in the interval. Patchy areas of subpleural soft tissue thickening measuring up to 2 cm in the left lung appears stable. -No new pulmonary nodules or masses. Esophagus: Normal. Chest wall soft tissues: Normal Liver: Diffuse perfusion abnormality is again seen throughout the liver. 1.4 cm arterial enhancing lesion in segment 5/6 (image 2-42), stable. 0.9 cm lesion in segment 4A/8 (image 2-26), stable. Stable soft tissue along the inferior tip of the right lobe measuring 1.5 x 3.3 cm (image 6-1 29) and along the medial margin of the right lobe measuring up to 2.9 x 1.5 cm (image 6-117, 6-101). Bile ducts: Not dilated. Gallbladder: Surgically absent Pancreas: Normal Spleen: Normal Adrenal glands: Normal Kidneys: Probable left renal cyst. No hydronephrosis. Ureters: Normal Bladder: Decompressed Aorta: Nonaneurysmal Retroperitoneum: Portacaval lymph node measures 1.3 cm (image 6-1 9), measured 1 cm on prior exam. Hepatic artery lymph node measuring up to 0.9 cm (image 6-1 14) measured 1.5 cm previously. Peritoneum: No ascites. Multiple small implants are seen in the pelvis measuring up to 8 mm in thickness, similar or mildly increased measuring up to 6 mm in thickness previously. Multiple omental implants are again noted (image 6-1 28 in left upper quadrant, 6-1 45 mid abdomen), similar. Mesentery: Mildly enlarged mesenteric root lymph nodes measuring up to 1 cm, stable Stomach: Not distended. Small bowel: Right lower quadrant anastomosis, not dilated. Colon: Status post right hemicolectomy, patent anastomosis Appendix: Not visualized Extraperitoneal pelvis: Enlarged iliac chain lymph nodes measuring up to 1.6 cm, stable. Prostate: Moderately enlarged Abdominal wall: Normal Bones: No acute fracture or destructive bone lesion. Degenerative changes in the spine. IMPRESSION Impression: 1. Stable size of the loculated right pneumothorax. 2. Interval decrease in size of small left pleural effusion. 3. Stable tiny scattered pulmonary nodules, subpleural soft tissue thickening and scarring the bilateral lungs. 4. Stable pericardial, mesenteric root and iliac chain lymphadenopathy, suspected metastasis. Portacaval lymph node, mildly increased in size in the interval, concerning for metastasis. Mild decrease in size of the lymph node adjacent to the hepatic artery. 5. Diffuse hepatic perfusion abnormality with 2 stable suspected metastasis. 6. Peritoneal carcinomatosis with deposits similar in size or mildly larger in the interval. DIFFERENTIAL (01/14/2017 10:30 AM)Only the most recent of2 resultswithin the time period is included. Component Value Range % Neutrophils-Auto Diff 74.4 % Neutrophils-Auto Diff 7480 7441-3296 /MM3 % Lymphocytes-Auto Diff 14.5 % Lymphocytes-Auto Diff 2673 451-3386 /MM3 % Monocytes-Auto Diff 9.2 % Monocytes-Auto Diff 920(H) 130-860 /MM3 % Eosinophils-Auto Diff 1.5 % Eosinophils-Auto Diff 150 40-390 /MM3 % Basophils 0.1 % Basophils-Auto Diff 10 10-136 /MM3 % Immature Granulocytes-Auto Diff 0.3 % Immature Granulocytes-Auto Diff 30 /MM3 Specimen Whole Blood CBC (COMPLETE BLOOD COUNT) (01/14/2017 10:30 AM)Only the most recent of2 resultswithin the time period is included. Component Value Range WBC Count 10.1 3.7-10.5 K/MM3 RBC Count 4.84 4.50-6.20 M/MM3 Hemoglobin 12.5(L) 13.2-17.7 g/dL Hematocrit 40 40-52 % MCV (Mean Corpuscular Volume) 82 82-99 FL MCH (Mean Corpuscular Hemoglobin) 26 25-35 PG MCHC (Mean Corpuscular Hemoglobin Concentration) 31(L) 32-36 % Platelet Count 330 150-400 K/MM3 MPV (Mean Platelet Volume) 9.6 9.4-12.3 FL RBC Dist Width-STD 50.5(H) 35.1-43.9 FL RBC Distrib Width 17.0(H) 9.0-14.5 % Nucleated RBC 0 /100 WBC Specimen Whole Blood CALCITONIN (01/14/2017 10:30 AM) Component Value Range Calcitonin <2.0Comment: 0.0-7.5 pg/mL INTERPRETIVE INFORMATION: Calcitonin Calcitonin levels greater than 100 pg/mL may occur in the following conditions: medullary thyroid carcinomas (MTC), leukemias, and myeloproliferative disorders. Provocative testing (calcium) is suggested in patients with MTC if the calcitonin is not clearly diagnostic. The Siemens Immulite 2000 method is used.Results obtained with different assay methods or kits cannot be used interchangeably. Calcitonin is useful in monitoring medullary thyroid carcinoma. The calcitonin assay value, regardless of level, should not be interpreted as absolute evidence of the presence or absence of malignant disease. Performed by [facility], [address] [place] [id number] [email or web address], Can Hoskins MD, Lab. Director Specimen Blood Narrative Specimen Source: Specimen Start Date: PANCREATIC POLYPEPTIDE (01/14/2017 10:30 AM) Component Value Range Pancreatic Polypeptide 35Comment: 0-435 pg/mL INTERPRETIVE INFORMATION:Pancreatic Polypeptide Test developed and characteristics determined by [facility]. See Compliance Statement D: [facility] Performed by [facility], [address] [address] [email or web address], Can Hoskins MD, Lab. Director Specimen Blood Narrative Specimen Source: Specimen Start Date: SEROTONIN, BLOOD (01/14/2017 10:30 AM)Only the most recent of2 resultswithin the time period is included. Component Value Range Serotonin, Blood 824(H)Comment: 50-200 ng/mL TEST INFORMATION:Serotonin Whole Blood Test developed and characteristics determined by [facility]. See Compliance Statement B: [facility] Performed by [facility], [address] [address] [email or web address], Can Hoskins MD, Lab. Director Specimen Blood Narrative Specimen Source: Specimen Start Date: PANCREASTATIN (01/14/2017 10:30 AM)Only the most recent of2 resultswithin the time period is included. Component Value Range Pancreastatin 820(H)Comment: 10-135 pg/mL This test was developed and its performance characteristics determined by [facility]. It has not been cleared or approved by the US Food and Drug Administration. The FDA has determined that such clearance or approval is not necessary. Specimen Blood GASTRIN, SERUM (01/14/2017 10:30 AM) Component Value Range Gastrin, Serum 17Comment: 0-100 pg/mL Performed by [facility], [address] [address] [email or web address], Can Hoskins MD, Lab. Director Specimen Blood Narrative Specimen Source: Specimen Start Date: CBC WITH DIFFERENTIAL (01/14/2017 10:30 AM)Only the most recent of2 resultswithin the time period is included. Specimen Whole Blood Narrative The following orders were created for panel order CBC WITH DIFFERENTIAL. Procedure Abnormality Status --------- ------ CBC (COMPLETE BLOOD COUNT)[[id number]] AbnormalFinal result DIFFERENTIAL[[id number]] AbnormalFinal result Please view results for these tests on the individual orders. COMPREHENSIVE METABOLIC PANEL (CMP) (01/14/2017 10:30 AM) Component Value Range Sodium 142 135-145 mEq/L Potassium 4.6 3.5-5.0 mEq/L Chloride 102 95-107 mEq/L CO2 27 22-29 mEq/L Anion Gap 13 8-18 mEq/L BUN 23(H) 10-20 mg/dL Creatinine 1.2Comment: 0.6-1.2 mg/dL Creatinine switched to enzymatic method on 03/10/2011.GFR equation switched to IDMS-traceable MDRD equation on 03/10/2011. Calculated GFR values are not valid in clinical settings where serum creatinine is changing. Glucose 144(H)Comment: 65-99 mg/dL The Expert Committee on the Diagnosis and Classification of Diabetes has defined impaired fasting glucose as greater than or equal to 100 mg/dL but less than 126 mg/dL.(Diabetes Care 28 (Suppl 1)S41,2005) Calcium 9.4 8.5-10.5 mg/dL Total Protein 8.2(H) 6.0-8.0 g/dL Albumin 4.0 3.4-4.8 g/dL AST 32Comment: 0-40 U/L Adult reference ranges updated on 09/26/13 at 830am ALP 109 40-129 U/L Bilirubin Total 0.2 <=1.2 mg/dL ALT 46(H)Comment: 0-41 U/L The upper limit of normal [...] if applicable, data from other diagnostic tests. Calculated GFR 61 >60 mL/min/1.73 m2 Specimen Blood THORACENTESIS WITH ULTRASOUND (01/06/2017 11:05 AM) Edison Son MD 01/06/2017 11:05 AM Thoracentesis Procedure Note Procedure Date: 01/06/2017 Operation/Procedure: Left diagnostic and therapeutic thoracentesis Location: [facility] Primary Diagnosis: Neuroendocrine cancer Attending Staff: Edison Hill MD Resident/Fellow: Arnulfo Velásquez MD Assistants:Neptali Palumbo RRT Consent for Operation or Procedure: Consent for procedure obtained from patient (or DPOA) on 01/06/2017.Alternatives, risks, side effects, benefits and complications explained in detail and patient was agreeable. Indications: Diagnosis and relief of dyspnea Procedural Medications:5 cc of 1% Lidocaine Description of Operation/Procedure: Procedural timeout was performed and patient identified with MRN and . Patient was placed in seated position with arms in front resting on table. The upper left back was probed with the ultasound probe and largest collection of fluid was identified. A sandip was placed on the skin. The skin was then prepped with chlorhexidine and draped in usual sterile fashion. The skin, subcutaneous tissue, and the pleura were anesthetized with lidocaine using the 22G needle. The pleural space was entered with return of cloudy and yellow fluid. An 11 blade scalpel was used to make a 1 cm incision in the skin. An 18 Gauge needle with 8F catheter was then advanced through incision, over the rib and into pleural space with continous aspiration with return of cloudy and yellow fluid. The catheter was advanced over the needle into the pleural space and needle was withdrawn. A sample of 100 cc of fluid was initially collected for diagnostic studies. A manual bag drainage system was then used to collect fluid for further therapeutic purposes. A total of 1300 cc was collected. The decision to complete the procedure at this time and not remove additional fluid was influenced by the presence of: Fluid stopped draining. The catheter was removed during patient exhalation and pressure applied over puncture site. A band aid was placed. Ultrasound was used for the underwood portions of the procedure which included identification of diaphragm, lung, and fluid collection and an image was saved on the machine prior to commencing the procedure. This revealed a deep pocket of fluid low in lateral left chest - space looked simple, though pleura bright and thick. Right side without visible fluid and could not see transition from lung to PTX Specimens: cytology, total protein, LDH, gram stain and culture, glucose and cell count with differential Complications: Patient tolerated the procedure. There were no immediate complications. Estimated Blood Loss: Estimated blood loss was none . Chelsey Velásquez MD Fellow Physician Pulmonary/Critical Care Medicine I personally reviewed this case noting the salient findings and diagnostic studies. I concur with the findings as detailed by Dr Camacho.I was present for the entire procedure. Edison Hill MD Pulmonary & Critical Care Pager [phone] CYTOLOGY NON-ENCYCLOPEDIA RESEARCH WORKER EXAM (01/06/2017 10:05 AM) Component Value Range Case Report Non-Life Skills Instructor Cytopathology Case: [id number] Authorizing Provider:Chelsey Velásquez MDCollected: 01/06/2017 10:05 AM Ordering Location: Pulmonary Diagnosis andReceived: 01/06/2017 11:03 AM Intervention Pathologist: Gomez Pickens MD Specimen:Pleural Fluid Interpretation Pleural Fluid:No tumor cells identified I have personally reviewed this case and edited the report as necessary. Specimen Description 100 mL red fluid Specimen Other - Pleural Fluid GLUCOSE-OTHER (01/06/2017 10:05 AM) Component Value Range Glucose Fluid Type Pleural fluid Glucose, Other 188Comment: mg/dL This test is not approved by the FDA for this sample type. Performance characteristics and reference range have not been verified. Results should be interpreted in conjunction with clinical findings. A published study using [employer] bubba 8000 analyzers has demonstrated that analysis of glucose in cerebrospinal fluid, dialysate, pericardial fluid, peritoneal/ascites fluid, pleural flui d, synovial fluid, and vitreous fluid shows no evidence of systematic matrix interference (Clin Biochem 48:911-914, 2014). Specimen Other LACTATE DEHYDROGENASE (LDH)-OTHER (01/06/2017 10:05 AM) Component Value Range LD Fluid Type Pleural fluid LD, Other 367Comment: IU/L This test is not approved by the FDA for this sample type. Performance characteristics and reference range have not been verified. Results should be interpreted in conjunction with clinical findings. A published study using [employer] bubba 8000 analyzers has demonstrated that analysis of LDH in cerebrospinal fluid, pericardial fluid, peritoneal/ascites fluid, pleural fluid, and synovial fluid shows no evidence of systematic matrix interference (Clin Biochem 48: 911-914, 2014). Specimen Other TOTAL PROTEIN-OTHER (01/06/2017 10:05 AM) Component Value Range Total Protein Fluid Type Pleural fluid Total Protein, Other 4.7Comment: g/dL This test is not approved by the FDA for this sample type. Performance characteristics and reference range have not been verified. Results should be interpreted in conjunction with clinical findings. A published study using [employer] bubba 8000 analyzers has demonstrated that analysis of total protein in cerebrospinal fluid, pericardial fluid, peritoneal/ascites fluid, pleural fluid, an d synovial fluid shows no evidence of systematic matrix interference (Clin Biochem 48:911-914, 2015). Specimen Other BODY FLUID CELL COUNT AND DIFF (01/06/2017 10:05 AM) Component Value Range Body Fluid Type Pleural fluid Clarity, Other Hazy(A) Clear Color, Other [place](A) None, Yellow, Pale Yellow Total Nucleated Count, Other 1832 /MM3 RBC Count, Other 04726 /MM3 Neutrophils, Other 147 /MM3 Lymphocytes, Other 1044 /MM3 Mononucleated Cells, Other 366 /MM3 Eosinophils, Other 256 /MM3 Other Cells, Other 18 /MM3 % Neutrophils, Other 8.0 % % Lymphocytes, Other 57.0 % %BF Mononucleated Cells 20.0 % % Eosinophils, Other 14.0 % % Other Cells, Other 1.0 % Specimen Other Narrative Cells listed as "others" are large, atypical cells with increased NC ratio. Please correlate with concurrent cytology specimen ([id number]). These results have been reviewed by the pathologist. klp STERILE BODY FLUIDS CULTURE-AUTOMATED (01/06/2017 10:05 AM) Component Value Range Blood Culture No Growth Stain No organisms observed Stain Many PMN's Stain Cytospun preparation Specimen Culture - Pleural Fluid EXTERNAL CT - STORE ONLY (01/05/2017 2:59 PM)NUC TUMOR W.BODY (2-DAY) SPECT/CT IN-111 OCTREO ([id number]) (11/04/2016 2:31 PM) Impressions Impression: 1. Extensive [...] NUC TUMOR W.BODY (2-DAY) SPECT/CT IN-111 OCTREO ([id number]) Octreoscan Single Photon Emission Computed Tomography. 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 Indication: [...] (right greater than left) mediastinal lymph nodes. HEMOGLOBIN A1C (11/03/2016 9:26 AM) Component Value [...] lower.The A1c result is unchanged. Specimen Supernatant VITAMIN D, 25-HYDROXY (11/03/2016 9:25 AM) Component Value Range Vitamin D, 25-OH 20Comment: 20-80 ng/mL This assay accurately quantifies the sum of 25-hydroxyvitamin D3 and 25- hydroxyvitamin D2. Endocrine Society, [place] of Medicine (IOM), and World Health Organization [...] developed and its performance characteristics determined by [facility]. It has not been cleared or approved by the U.S.Food and Drug Administration. The FDA has determined that such clearance or approval is not necessary. Sandostatin is a registered trademark of [employer]. Analysis performed by [facility], [address] [place] [address]. [id number] Specimen Blood NEUROKININ A (SUBSTANCE K) (11/03/2016 9:25 AM) Component Value Range Neurokinin A (Substance K) 25Comment: <=40 pg/mL This test was developed and its performance characteristics determined by [facility]. It has not been cleared or approved by the US Food and Drug Administration. The FDA has determined that such clearance or approval is not necessary. Specimen Blood CHROMOGRANIN A (11/03/2016 9:25 AM) Component Value Range Chromogranin A 2090(H)Comment: 0-95 ng/mL INTERPRETIVE INFORMATION:Chromogranin A This test is performed using the [employer] PBD-ASXSI-OZ kit. Results obtained with different methods or kits cannot be used interchangeably. See Compliance Statement D: [facility]/CS Performed by [facility], [address] [place] [id number] [email or web address], Can Hoskins MD, Lab. Director Specimen Blood Narrative Source: BLOOD Client Accession number: [id number] TRIIODOTHYRONINE - FREE (11/03/2016 9:25 AM) Component Value Range T3, Free 1.97(L) 2.57-4.43 pg/mL Specimen Blood THYROXINE - FREE (11/03/2016 9:25 AM) Component Value Range Free T4 (Thyroxine) 1.06 0.80-1.80 ng/dL Specimen Blood THYROID STIMULATING HORMONE (11/03/2016 9:25 AM) Component Value Range TSH 1.82 0.27-4.20 IU/mL Specimen Blood CHLORIDE (11/03/2016 9:25 AM) Component Value Range [...]
[2017-01-23] MEDS ORDERED: ALBUTEROL SULFATE/IPRATROPIUM 3 ML NEBU IH ONE ×2 (11:48→11:52)
--- NOTE | 2017-01-23 11:54 | ERNOTE ---
Dyspnea - Date Date of Service: 01/23/17 - General Presenting Symptoms: difficulty of breathing Time Seen by Provider: 01/23/17 11:36 Source: patient Exam Limitations: no limitations - Immun/Allergies/Home Medications Immunizations: IMMUNIZATION HX Immunizations Up to Date Yes History of Influenza Vaccine No Hx Pneumococcal Vaccination No Allergies/Adverse Reactions: Allergies No Known Allergies Allergy (Verified 01/23/17 11:30) Home Medications: HOME MEDICATIONS Atorvastatin Calcium [Lipitor] 40 mg PO HS 10/01/15 [Last Taken Unknown] Lisinopril [Zestril] 20 mg PO DAILY 10/01/15 [Last Taken Unknown] Venlafaxine HCl [Effexor Xr] 375 mg PO DAILY 10/13/15 [Last Taken Unknown] ALPRAZolam [Xanax] 0.5 mg PO BID PRN #0 tablet 10/14/15 [Last Taken Unknown] Aspirin [Aspirin Enteric Coated] 325 mg PO DAILY #30 tablet.dr 10/14/15 [Last Taken Unknown] Loperamide HCl [Imodium] 4 mg PO QID PRN #0 capsule 10/14/15 [Last Taken Unknown ] Metoprolol Tartrate [Lopressor] 25 mg PO BID #60 tab 10/14/15 [Last Taken Unknown] Proair Hfa 2 puff PO Q6H #1 10/14/15 [Last Taken Unknown] Sandostatin Lr 20 mg IM Q30D 10/14/15 [Last Taken Unknown] hydrOXYzine HCL [Atarax] 50 mg PO TID PRN #0 tablet 10/14/15 [Last Taken Unknown ] Albuterol Sulfate/Ipratropium [Duoneb 2.5-0.5MG/3ML Soln] 3 ml IH Q4H PRN #150 vial 12/31/16 [Last Taken Unknown] predniSONE [Prednisone] 3 tab PO DAILY #9 tab 12/31/16 [Last Taken Unknown] Morphine Sulfate [Morphine Sulfate 20 Mg/ml Conc. Oral Solution] 0.25 ml SL Q4H PRN #45 ml 01/23/17 [Last Taken Unknown] - History of Present Illness Narrative: Dyspnea. Known carcinoid, metastatic, with right pleural effusion. Recently, pleurocentesis [place]. Helped on that day only. Subsequently, a repeat Xray in [place] showed only minimal pleural fluid in spite of ongoing dyspnea. Losing weight. 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 Denies: currently on antibiotics Review of Systems - Review of Systems Constitutional: Present: weakness, fatigue, malaise, weight loss EYE: Present: no symptoms reported ENT: Present: no symptoms reported Respiratory: Present: See HPI Cardiology: Present: no symptoms reported Gastrointestinal/Abdominal: Present: no symptoms reported Genitourinary: Present: no symptoms reported Musculoskeletal: Present: no symptoms reported Skin: Present: no symptoms reported Neurological: Present: no symptoms reported Endocrine: Present: no symptoms reported Hematologic/Lymphatic: Present: no symptoms reported Psych: Present: no symptoms reported All Other Systems: All systems neg except as marked - Patient's Past Medical History Patient History - Medical: Anemia Patient History - Cardiac/Respiratory: COPD Patient History - Cancer: Colon, Surgical Treatment Patient History - Surgical Procedures: Appendectomy, Cholecystectomy, Colon Resection, T & A Patient History - Other: None - Family History Mother Family History - Medical: , No pertinent hx Family History - Cardiac/Respiratory: Coronary Heart Disease Father Family History - Medical: , No pertinent hx Family History - Cardiac/Respiratory: No pertinent hx, COPD - Social History Living Situations: alone Abuse History: No History of abuse Psych History: No pertinent hx Smoking Status: Current every day smoker Have you smoked in the past 12 months: Yes Alcohol Use: none Drug Use: none - Immunizations Immunizations Up to Date: Yes Hx Pneumococcal Vaccination: No History of Influenza Vaccine: No Physical Exam - Physical Exam General Appearance: Present: alert, no apparent distress, thin, cachetic Eye Exam: Normal inspection: bilateral, PERRL: bilateral, EOMI: bilateral Ears, Nose, Throat: Present: normal ENT inspection Neck: Present: normal inspection Respiratory: Present: no respiratory distress, chest nontender, decreased breath sounds. Absent: crackles, rales, rhonchi, wheezing Cardiovascular/Chest: Present: regular rate, rhythm, no murmur Gastrointestinal/Abdominal: Present: normal bowel sounds, nontender, nondistended, soft, no organomegaly Back Exam: Present: normal inspection Extremity Exam: Present: normal inspection, no edema Neurological Exam: Present: alert, oriented Skin Exam: Present: normal color, warm/dry ED Progress - Results and Orders Patient's Lab Results:: I have reviewed the patient's lab results. - Vital Signs Patient's Vital Signs:: I have reviewed the patient's vital signs. Vital Signs: Vital Signs 01/23/17 11:22 Temperature 36.1 C L Pulse Rate 88 Respiratory 14 Rate Blood Pressure 123/72 O2 Sat by Pulse 100 Oximetry - EKG EKG: NSR, nonspecific ST T wave changes EKG read: Interp. by nj - LAD - Progress/Reassessment Chief Complaint: Dyspnea Progress Note-Subjective: 01/23/17 12:33 Morphine helped his dyspnea somewhat, and did not give him any side effects. We will repeat the dose. 01/23/17 12:59 Much better now. Discussed with him. (This is most likely dyspnea related to the worsening of his cancer itself). Departure Clinical Impression: Other forms of dyspnea, Metastatic carcinoid tumor - Departure Disposition: Home self-care Condition: Fair Instructions: Pleural Effusion Additional Instructions: Followup with Dr. Mccollum, end of next week. Prescriptions: Morphine Sulfate [Morphine Sulfate 20 Mg/ml Conc. Oral Solution] 0.25 ml SL Q4H PRN #45 ml PRN Reason: Dyspnea
[2017-01-23 12:07] LABS: Hematocrit 38.4 % (42.0-52.0); Hemoglobin 12.1 gm/dL (13.5-18.0); Mean Cell Volume 82.2 fl (78-100); Mean Corpuscular Hemoglobin 25.9 pg (27-31); Mean Corpuscular Hgb Conc 31.5 g/dl (32-36); Neutrophil # 10.3 K/mm3 (1.3-6.0); Neutrophil % 81.5 % (42-75.0); Platelet Count 343 K/mm3 (150-450); Red Blood Count 4.67 M/mm3 (4.7-6.0); Red Cell Distribution Width 17.2 % (11.5-14.0); White Blood Count 12.6 K/mm3 (4.0-10.5)
[2017-01-23 12:26] LABS: ALT 38 U/L (19-67); AST 25 U/L (0-48); Albumin * 3.6 gm/dl (3.4-5.0); Alkaline Phosphatase * 145 U/L (50-170); Anion Gap 13.6 mmol/L (6.8-13.8); BNP * 280 pg/mL (5-175); BUN/Creatinine Ratio 16.9 (9.0-21.6); Blood Urea Nitrogen 26 mg/dL (6-23); Ca. Corrected For Albumin 9.4 mg/dL (8.4-10.2); Calcium * 9.4 mg/dL (7.9-10.9); Chloride 106 mmol/L (97-106); Glucose * 163 mg/dL (70-110); Potassium 3.6 mmol/L (3.4-4.6); Sodium 144 mmol/L (132-142); Total Protein 8.6 gm/dL (6.2-8.2); Troponin I Less than 0.017 ng/ml (0.00-0.10)
[2017-01-23 12:51] VITALS: BP 122/74
== END 2017-01-23 13:16 | disposition home or self-care (01) ==
LOC: ER 11:18
DX: R06.09 Other forms of dyspnea (principal); C79.9 Secondary malignant neoplasm of unspecified site; Z85.038 Personal history of other malignant neoplasm of large intestine; Z72.0 Tobacco use; D64.9 Anemia, unspecified; J44.9 Chronic obstructive pulmonary disease, unspecified

== ENCOUNTER 2017-02-13 20:48 | Emergency (ER) | payer MEDICARE, MEDICAID ==
--- OUTSIDE RECORDS SUMMARY | 2017-02-13 21:11 | XMS REPORT | Continuity of Care Document ---
:1950 Author Organization [facility] ([facility]) [place] [address] Phone [phone] Care Team Providers Name Role Phone Morris Mccollum Primary Care Provider [phone] Source Comments This disclosure is being made pursuant to the Care Everywhere program, applicable federal and state laws, and may not contain all informaitonavailable regarding this patient.[facility] ([facility]) Active Allergies and Adverse Reactions No Known Allergies Current Medications Prescription Sig. Disp. Refills Start End Status Date Date lisinopril 20 mg Take 20 mg by mouth Active tablet daily. ALPRAZolam 0.5 mg Take 0.5 mg by 0 09/14/20 Active tablet mouth 2 times daily 15 as needed. venlafaxine 150 mg Take 300 mg by 3 09/30/20 Active XR capsule mouth daily. 15 venlafaxine 75 mg Take 75 mg by mouth 3 09/29/20 Active XR capsule daily. 15 aspirin 325 mg EC Take 325 mg by Active tablet mouth daily. NOT TAKING atorvastatin 40 mg Take 40 mg by mouth Active tablet daily. albuterol 90 Use 2 Puffs by Active mcg/Actuation inhalation every 6 inhaler hours as needed. metoPROLol tartrate Take 25 mg by mouth Active 25 mg tablet 2 times daily. budesonide-formoter Use 2 Puffs by Active ol (SYMBICORT) inhalation 2 times 160-4.5 daily. mcg/Actuation inhaler acetaminophen 325 Take 2 tablets (650 60 tablet 2 07/18/20 Active mg tablet mg total) by mouth 16 every 4 hours. pancrelipase (CREON Take 1 capsule by 90 capsule 11 11/04/19 Active 12,000) mouth 3 times daily 17 12,000-38,000 with meals. -60,000 unit EC capsule tiotropium Use 1 capsule by 30 capsule 11 01/15/20 Active (SPIRIVA) 18 mcg inhalation daily. 17 inhalation capsule octreotide Inject 20 mg Active (SandoSTATIN LAR intramuscularly DEPOT) 20 mg every 4 weeks. injection Alternate injection site to avoid irritation.Every 28 days levothyroxine 50 Take 1 tablet (50 30 tablet 01/27/20 Active mcg tablet mcg total) by mouth 17 017 every morning before breakfast. cholecalciferol Take 1 tablet 30 tablet 01/27/20 Active (VITAMIN D3) 5,000 (5,000 Units total) 17 017 unit tablet by mouth daily. octreotide inject 5 mL 20 mL 04/24/20 Discontinued (SandoSTATIN LAR intramuscularly 13 017 DEPOT) 20 mg once. Take every injection four weeks. Indications: CARCINOID SYNDROME naproxen sodium Take 220 mg by Discontinued (ALEVE) 220 mg mouth 2 times daily 017 tablet as needed. Carica Papaya Take 3 tablets by 90 tablet 10/01/20 Discontinued (PAPAYA ENZYME) tab mouth 3 times daily 16 017 before meals. 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) 01/26/2017 Office Visit Heart and Vascular Gissell Gary Dx: Carcinoid tumor MD Lisa (Primary Dx) 01/21/2017 Telephone Med Pulmonary Leida [place], Chief Comp: Return Dionne Clark MD Call 01/21/2017 Telephone Med Pulmonary Dionne Mendoza MD 01/19/2017 Telephone [facility] Pulmonary Leida [place] Chief Comp: Discuss Dionne Clark MD Recommendations 01/18/2017 Orders/Notes [facility] Dionne Mendoza MD 01/14/2017 Hospital Radiology Edison Hanson Dx: Pancreatic Encounter MD Brad insufficiency 01/14/2017 Office Visit Med Hematology and Ana Paula Lyons, Dx: Carcinoid tumor Oncology (Primary Dx) 01/14/2017 Office Visit Med Pulmonary Leida [place], Dx: Dyspnea, Oncology Dionne Clark MD unspecified type (Primary Dx) 01/13/2017 Telephone [facility] Prince Silverio Chief Comp: Shortness of Breath 01/13/2017 Telephone [facility] Timbo Chief Comp: Alice Lozoya RN Appointment Info 01/06/2017 [facility] Respiratory Therapy Default, Other Dx: Pleural effusion Encounter Nanci Garces (Primary Dx) Jhonny Marquez MD Gross, Thomas J, MD 01/05/2017 [facility] Radiology Paulo Grande, Chief Comp: Patient Encounter MD Reported Reason For Visit 01/05/2017 Orders/Notes [facility] Dionne Mendoza MD 01/04/2017 Telephone [facility] Leida [place], Chief Comp: Dionne Clark MD Appointment Info 12/17/2016 Office Visit Med Hematology and Narciso Howard Chief Comp: Patient Oncology Reported Reason For Geri Jenkins MD Immunizations Name Dates Previously Given Next Due Influenza, unspecified 09/17/2008 Pneumococcal Polysaccharide, PPSV23 (Pneumovax 23) 07/16/2016 Social History Tobacco Use Types Packs/Day Years Used Date Former Smoker Cigarettes 0.25 30 Quit: 01/18/2017 Smokeless Tobacco: Never Used Tobacco Cessation:Ready to Quit: No Comments: Alcohol Use Drinks/Week oz/Week Comments No Last Filed Vital Signs Vital Sign Reading Time Taken Blood Pressure 144/85 01/26/2017 2:03 PM CDT Pulse 95 01/26/2017 2:03 PM CDT Temperature 36.2 C (97.2 F) 01/26/2017 2:03 PM CDT Respiratory Rate 16 01/14/2017 12:24 PM CDT Height 1.778 m (5' 10") 01/26/2017 2:03 PM CDT Weight 56.3 kg (124 lb 1.9 oz) 01/26/2017 2:03 PM CDT Body Mass Index 17.81 01/26/2017 2:03 PM CDT Oxygen Saturation 98% 01/26/2017 2:03 PM CDT Plan of Care Date Type Specialty Providers Description 02/24/2017 Appointment Med Hematology and Narciso Howard MD Chief Comp: Patient Oncology [address] [employer] [place] [address] Visit [phone] (Fax) 02/24/2017 Appointment Internal Medicine - Javad Poole MD [address] [place] [address] [phone] (Fax) Chief Comp: Patient Specialty ([id number]), Palliative Care [address] [place] [address] [phone] (Fax) Reported Reason For Visit 02/24/2017 Appointment Med Hematology and Ana Paula Lyons MD Chief Comp: Patient Oncology [address] [employer] [place] [address] Visit [phone] (Fax) Health Maintenance Due Date Last Done Comments Hepatitis B Vaccine (1 of 3 - Primary Series) 1950 Tdap Vaccine 1963 Lipid Disorder Screening 1970 Td Vaccine 1970 Prostate Cancer Screening 06/25/2010 06/25/2008 Zoster Vaccine 2012 Influenza Vaccine: Seasonal (Season Ended) 2017 09/17/2008 Pneumococcal Vaccine (2 of 3 - PCV13) 07/16/2017 07/16/2016 Colonoscopy 12/03/2025 12/03/2015 HCV Screening Completed 01/10/2009 Procedures from Last 3 Months Procedure Name Priority Date/Time Associated Comments Diagnosis THORACENTESIS WITH Routine 01/06/2017 11:05 Pleural effusion Results for this ULTRASOUND AM 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 Results from Last 3 Months TRIIODOTHYRONINE - FREE (01/26/2017 5:09 PM) Component Value Range T3, Free 1.78(L) 2.57-4.43 pg/mL Specimen Blood LIVER PANEL (01/26/2017 5:09 PM) Component Value Range Bilirubin Total 0.5 <=1.2 mg/dL AST 18Comment:Adult reference ranges updated on 09/26/13 0-40 U/L at 830am ALT 20Comment:The upper limit of normal for alanine 0-41 U/L aminotransferase (ALT) reference ranges for adults is controversial with some authorities recommending limit as low as 30 U/L for males and 19 U/L for females. There is increased incidence of subclinical liver disease (e.g., early steatohepatitis) in patients with ALT values in the range of 31-41 U/L for males and 20-33 U/L for females. ALT values should always be interpreted in conjunction with clinical history, physical examination findings, and, if applicable, data from other diagnostic tests. ALP 139(H) 40-129 U/L GGT 55 8-61 U/L Albumin 3.8 3.4-4.8 g/dL Total Protein 8.0 6.0-8.0 g/dL Specimen Blood CBC (COMPLETE BLOOD COUNT) (01/26/2017 5:09 PM) Component Value Range WBC Count 12.9(H) 3.7-10.5 K/MM3 RBC Count 4.45(L) 4.50-6.20 M/MM3 Hemoglobin 11.5(L) 13.2-17.7 g/dL Hematocrit 37(L) 40-52 % MCV (Mean Corpuscular Volume) 82 82-99 FL MCH (Mean Corpuscular Hemoglobin) 26 25-35 PG MCHC (Mean Corpuscular Hemoglobin Concentration) 32 32-36 % Platelet Count 332 150-400 K/MM3 MPV (Mean Platelet Volume) 10.0 9.4-12.3 FL RBC Dist Width-STD 50.9(H) 35.1-43.9 FL RBC Distrib Width 17.1(H) 9.0-14.5 % Nucleated RBC 0 /100 WBC Specimen Whole Blood COMPREHENSIVE METABOLIC PANEL (CMP) (01/26/2017 5:09 PM)Only the most recent of2 resultswithin the time period is included. Component Value Range Sodium 140 135-145 mEq/L Potassium 4.3 3.5-5.0 mEq/L Chloride 99 95-107 mEq/L CO2 29 22-29 mEq/L BUN 24(H) 10-20 mg/dL Creatinine 1.3(H)Comment: 0.6-1.2 mg/dL Creatinine switched to enzymatic method on 03/10/2011.GFR equation switched to IDMS-traceable MDRD equation on 03/10/2011. Calculated GFR values are not valid in clinical settings where serum creatinine is changing. Glucose 151(H)Comment: 65-99 mg/dL The Expert Committee on the Diagnosis and Classification of Diabetes has defined impaired fasting glucose as greater than or equal to 100 mg/dL but less than 126 mg/dL.(Diabetes Care 28 (Suppl 1)S41,2005) Calcium 9.3 8.5-10.5 mg/dL Total Protein 8.0 6.0-8.0 g/dL Albumin 3.8 3.4-4.8 g/dL AST 18Comment: 0-40 U/L Adult reference ranges updated on 09/26/13 at 830am ALP 139(H) 40-129 U/L Bilirubin Total 0.5 <=1.2 mg/dL ALT 20Comment: 0-41 U/L The upper limit of normal [...] if applicable, data from other diagnostic tests. Anion Gap 12 mEq/L Calculated GFR 56(L) >60 mL/min/1.73 m2 Specimen Blood THYROXINE - FREE (01/26/2017 5:09 PM) Component Value Range Free T4 (Thyroxine) 1.03 0.80-1.80 ng/dL Specimen Blood THYROXINE (01/26/2017 5:09 PM) Component Value Range T4, Total 4.37(L) 4.60-12.00 g/dL Specimen Blood THYROID STIMULATING HORMONE (TSH), WITH REFLEX FREE T-4 (01/26/2017 5:09 PM) Component Value Range TSH, Reflex 1.12 0.27-4.20 IU/mL Specimen Blood CT CHEST ABDOMEN PELVIS W CONTRAST ([id number], [id number]) (01/14/2017 11:27 AM) Impressions Impression: 1. Stable size of the [...] Procedure: CT CHEST ABDOMEN PELVIS W CONTRAST ([id number], [id number]) Clinical Indication: patient with neuroendocrine tumor please [...] Procedure: CT CHEST ABDOMEN PELVIS W CONTRAST ([id number], [id number]) Clinical Indication: patient with neuroendocrine tumor please [...] larger in the interval. DIFFERENTIAL (01/14/2017 10:30 AM) Component Value Range % Neutrophils-Auto Diff 74.4 % Neutrophils-Auto Diff 7480 6578-2133 /MM3 % Lymphocytes-Auto Diff 14.5 % Lymphocytes-Auto Diff 1992 172-3405 /MM3 % Monocytes-Auto Diff 9.2 % Monocytes-Auto Diff 920(H) 130-860 /MM3 % Eosinophils-Auto Diff 1.5 % Eosinophils-Auto Diff 150 40-390 /MM3 % Basophils 0.1 % Basophils-Auto Diff 10 10-136 /MM3 % Immature Granulocytes-Auto Diff 0.3 % Immature Granulocytes-Auto Diff 30 /MM3 Specimen Whole Blood CBC (COMPLETE BLOOD COUNT) (01/14/2017 10:30 AM) Component Value Range WBC Count 10.1 3.7-10.5 [...] or absence of malignant disease. Performed by [facility], [address] [facility] [place] [address] www.[email or web address], Can Hoskins MD, Lab. Director Specimen Blood Narrative Specimen Source: Specimen Start Date: PANCREATIC POLYPEPTIDE (01/14/2017 10:30 AM) Component Value Range Pancreatic Polypeptide 35Comment: 0-435 pg/mL INTERPRETIVE INFORMATION:Pancreatic Polypeptide Test developed and characteristics determined by [facility]. See Compliance Statement D: [facility] Performed by [facility], [address] [facility] [place] [address] www.[email or web address], Can Hoskins MD, Lab. Director Specimen Blood Narrative Specimen Source: Specimen Start Date: SEROTONIN, BLOOD (01/14/2017 10:30 AM) Component Value Range Serotonin, Blood 824(H)Comment: 50-200 ng/mL TEST INFORMATION:Serotonin Whole Blood Test developed and characteristics determined by [facility]. See Compliance Statement B: [facility] Performed by [facility], [address] [facility] [place] [address] www.[email or web address], Can Hoskins MD, Lab. Director Specimen Blood Narrative Specimen Source: Specimen Start Date: PANCREASTATIN (01/14/2017 10:30 AM) Component Value Range Pancreastatin 820(H)Comment: 10-135 pg/mL This test was developed and its performance characteristics determined by [facility]. It has not been cleared or approved by the US Food and Drug Administration. The FDA has determined that such clearance or approval is not necessary. Specimen Blood GASTRIN, SERUM (01/14/2017 10:30 AM) Component Value Range Gastrin, Serum 17Comment: 0-100 pg/mL Performed by [facility], [address] [place] [address] www.[email or web address], Can Hoskins MD, Lab. Director Specimen Blood Narrative Specimen Source: Specimen Start Date: CBC WITH DIFFERENTIAL (01/14/2017 10:30 AM) Specimen Whole Blood Narrative The following orders were created for panel order CBC WITH DIFFERENTIAL. Procedure Abnormality Status --------- ------ CBC (COMPLETE BLOOD COUNT)[[id number]] AbnormalFinal result DIFFERENTIAL[[id number]] AbnormalFinal result Please view results for these tests on the individual orders. THORACENTESIS WITH ULTRASOUND (01/06/2017 11:05 AM) Narrative Edison Hill MD 01/06/2017 11:05 AM Thoracentesis Procedure Note [...] was present for the entire procedure. Edison Hlil MD Pulmonary & Critical Care Pager [phone] CYTOLOGY NON-HABITAT CONSERVATION PLANNER EXAM (01/06/2017 10:05 AM) Component Value Range Case Report Non-Textile Clothing And Footwear Mechanic Cytopathology Case: [id number] Authorizing Provider:Chelsey Velásquez MDCollected: 01/06/2017 10:05 AM [...] clinical findings. A published study using [employer] bubba 8000 analyzers has demonstrated that analysis of glucose in cerebrospinal fluid, dialysate, pericardial fluid, peritoneal/ascites fluid, pleural flui d, synovial fluid, and vitreous fluid shows no evidence of systematic matrix interference (Clin Biochem 48:911-914, 2015). Specimen Other LACTATE DEHYDROGENASE (LDH)-OTHER (01/06/2017 10:05 [...] interference (Clin Biochem 48:911-914, 2014). Specimen Other BODY FLUID CELL COUNT AND DIFF (01/06/2017 10:05 AM) Component Value Range Body Fluid Type Pleural fluid Clarity, Other Hazy(A) Clear Color, Other [place](A) None, Yellow, Pale Yellow Total Nucleated Count, Other 1832 /MM3 RBC Count, Other 97565 /MM3 Neutrophils, Other 147 /MM3 Lymphocytes, Other [...] ratio. Please correlate with concurrent cytology specimen ([id number]). These results have been reviewed by the pathologist. klp STERILE BODY FLUIDS CULTURE-AUTOMATED (01/06/2017 10:05 AM) Component Value Range Blood Culture No Growth Stain No organisms observed Stain Many PMN's Stain Cytospun preparation Specimen Culture - Pleural Fluid EXTERNAL CT - STORE ONLY (01/05/2017 2:59 PM)
[2017-02-13] MEDS ORDERED: ALBUTEROL SULFATE/IPRATROPIUM 3 ML NEBU IH ONE ×2 (21:14→21:23)
--- NOTE | 2017-02-13 21:15 | ERNOTE ---
ER Male HPI Date of Service: 02/13/17 Stated Complaint: URINARY PROBLEM, COPD ER Male: urinary retention Time Seen by Provider: 02/13/17 21:01 Source: patient Exam Limitations: no limitations Immunizations: IMMUNIZATION HX Immunizations Up to Date Yes History of Influenza Vaccine Yes Hx Pneumococcal Vaccination No Allergies/Adverse Reactions: Allergies No Known Allergies Allergy (Verified 02/15/17 16:14) Home Medications: HOME MEDICATIONS Atorvastatin Calcium [Lipitor] 40 mg PO HS 10/01/15 [Last Taken Unknown] Lisinopril [Zestril] 20 mg PO DAILY 10/01/15 [Last Taken Unknown] Venlafaxine HCl [Effexor Xr] 375 mg PO DAILY 10/13/15 [Last Taken Unknown] ALPRAZolam [Xanax] 0.5 mg PO BID PRN #0 tablet 10/14/15 [Last Taken Unknown] Aspirin [Aspirin Enteric Coated] 325 mg PO DAILY #30 tablet.dr 10/14/15 [Last Taken Unknown] Loperamide HCl [Imodium] 4 mg PO QID PRN #0 capsule 10/14/15 [Last Taken Unknown ] Metoprolol Tartrate [Lopressor] 25 mg PO BID #60 tab 10/14/15 [Last Taken Unknown] Proair Hfa 2 puff PO Q6H #1 10/14/15 [Last Taken Unknown] Sandostatin Lr 20 mg IM Q30D 10/14/15 [Last Taken Unknown] hydrOXYzine HCL [Atarax] 50 mg PO TID PRN #0 tablet 10/14/15 [Last Taken Unknown ] Albuterol Sulfate/Ipratropium [Duoneb 2.5-0.5MG/3ML Soln] 3 ml IH Q4H PRN #150 vial 12/31/16 [Last Taken Unknown] predniSONE [Prednisone] 3 tab PO DAILY #9 tab 12/31/16 [Last Taken Unknown] Morphine Sulfate [Morphine Sulfate 20 Mg/ml Conc. Oral Solution] 0.25 ml SL Q4H PRN #45 ml 01/23/17 [Last Taken Unknown] - History of Present Illness Narrative: 66 year that was released from the [facility] today for evaluation of his cancer. He has noted since leaving [place] that his first urination was adequate but subsequently has had only dribbling. Now complaints of bladder discomfort due to not being able to urinate. He is requesting a neb treatment which he usually gets at this time. No complaints of chest pain or unusual shortness of breath. Timing: Present: constant Quality: Present: moderate Onset Location: Present: suprapubic Activities at Onset: Present: none Prior Abdominal Problems: Present: other Modifying Factors - (Improves): Present: other - none Modifying Factors - (Worsens): Present: other - nothing Associated Symptoms: Present: denies symptoms Review of Systems - Review of Systems Constitutional: Present: no symptoms reported EYE: Present: no symptoms reported ENT: Present: no symptoms reported Respiratory: Present: no symptoms reported Cardiology: Present: no symptoms reported Gastrointestinal/Abdominal: Present: no symptoms reported Genitourinary: Present: no symptoms reported Musculoskeletal: Present: no symptoms reported Skin: Present: no symptoms reported Neurological: Present: no symptoms reported Endocrine: Present: no symptoms reported Hematologic/Lymphatic: Present: no symptoms reported Psych: Present: no symptoms reported - Patient's Past Medical History Patient History - Medical: Anemia, Anxiety, Depression Patient History - Cardiac/Respiratory: COPD, Hypertension, Hyperlipidemia Patient History - Cancer: Colon, Surgical Treatment Patient History - Surgical Procedures: Appendectomy, Cholecystectomy, Colon Resection, T & A Patient History - Other: None - Family History Mother Family History - Medical: , No pertinent hx Family History - Cardiac/Respiratory: Coronary Heart Disease Father Family History - Medical: , No pertinent hx Family History - Cardiac/Respiratory: No pertinent hx, COPD - Social History Living Situations: home Abuse History: No History of abuse Psych History: No pertinent hx, Hx of Anxiety, Hx of Depression Smoking Status: Former smoker Have you smoked in the past 12 months: No Do you dip or chew tobacco: No Patient requests Smoking Cessation Consult: No Initiate information on Smoking Cessation: No Alcohol Use: none Drug Use: none - Immunizations Immunizations Up to Date: Yes Hx Pneumococcal Vaccination: No History of Influenza Vaccine: Yes Physical Exam - Physical Exam General Appearance: Present: no apparent distress Eye Exam: Normal inspection: bilateral, PERRL: bilateral Ears, Nose, Throat: Present: normal ENT inspection Neck: Present: supple, full range of motion Respiratory: Present: no respiratory distress Cardiovascular/Chest: Present: regular rate, rhythm Gastrointestinal/Abdominal: Present: nontender, other - fullness at the bladder Back Exam: Present: normal inspection Extremity Exam: Present: normal inspection Neurological Exam: Present: alert, 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 - Vital Signs Patient's Vital Signs:: I have reviewed the patient's vital signs. Vital Signs: Vital Signs 02/13/17 20:51 Temperature 36.8 C Pulse Rate 95 Respiratory 16 Rate Blood Pressure 164/104 O2 Sat by Pulse 97 Oximetry - Progress/Reassessment Chief Complaint: Genitourinary Problem Progress:: Improved Departure Clinical Impression: Urinary retention - Departure Disposition: Home self-care Condition: Good Instructions: Acute Urinary Retention, Male Print Language: Afghan Additional Instructions: Follow up with the Urologist at [facility]. Referrals: Morris Echevarria MD [Primary Care Provider] -
[2017-02-13] MEDS ORDERED: LIDOCAINE HCL 10 APPL CARTRIDGE ONE (21:41)
[2017-02-13 22:24] LABS: Urine Bilirubin Negative (NEGATIVE); Urine Ketone Negative (NEGATIVE); Urine Nitrite Negative (NEGATIVE); Urine Protein 15 mg/dL (NEGATIVE); Urine Specific Gravity 1.025 SP.GR. (1.005-1.030); Urine Urobilinogen Normal (NORMAL)
[2017-02-13 22:55] LABS: Urine Appearance Clear; Urine Bacteria TRACE; Urine Blood 10 /ul (NEGATIVE); Urine Color Yellow; Urine Hyaline Cast 0-5 /LPF; Urine RBC 0-5 /hpf (0-5); Urine WBC None Seen /hpf (0-5)
[2017-02-13 23:51] VITALS: BP 151/99
== END 2017-02-13 23:49 | disposition home or self-care (01) ==
LOC: ER 20:48
PROC: 0T9B70Z Drainage of Bladder with Drainage Device, Via Natural or Artificial Opening (ICD-10-PCS; principal; 2017-02-13)
DX: R33.9 Retention of urine, unspecified (principal); Z85.038 Personal history of other malignant neoplasm of large intestine; Z87.891 Personal history of nicotine dependence; E78.5 Hyperlipidemia, unspecified; I10 Essential (primary) hypertension; F41.9 Anxiety disorder, unspecified; F32.9 Major depressive disorder, single episode, unspecified; J44.9 Chronic obstructive pulmonary disease, unspecified

== ENCOUNTER 2017-02-15 15:53 | Emergency (ER) | payer MEDICARE, MEDICAID ==
[2017-02-15] MEDS ORDERED: ALBUTEROL SULFATE 2.5 MG/0.5 ML VIAL.NEB IH ONE (15:59)
[2017-02-15] MEDS ORDERED: ALBUTEROL SULFATE 2.5 MG/3 ML VIAL.NEB IH ONE (16:10)
[2017-02-15] MEDS ORDERED: ALBUTEROL SULFATE/IPRATROPIUM 3 ML NEBU IH ONE ×2 (16:12→16:59)
--- NOTE | 2017-02-15 16:24 | ERNOTE ---
Dyspnea - Date Date of Service: 02/15/17 - General Presenting Symptoms: shortness of breath Time Seen by Provider: 02/15/17 16:03 Source: patient Exam Limitations: no limitations - Immun/Allergies/Home Medications Immunizations: IMMUNIZATION HX Immunizations Up to Date Yes History of Influenza Vaccine No Hx Pneumococcal Vaccination No Allergies/Adverse Reactions: Allergies No Known Allergies Allergy (Verified 02/15/17 16:14) Home Medications: HOME MEDICATIONS Atorvastatin Calcium [Lipitor] 40 mg PO HS 10/01/15 [Last Taken Unknown] Lisinopril [Zestril] 20 mg PO DAILY 10/01/15 [Last Taken Unknown] Venlafaxine HCl [Effexor Xr] 375 mg PO DAILY 10/13/15 [Last Taken Unknown] ALPRAZolam [Xanax] 0.5 mg PO BID PRN #0 tablet 10/14/15 [Last Taken Unknown] Aspirin [Aspirin Enteric Coated] 325 mg PO DAILY #30 tablet.dr 10/14/15 [Last Taken Unknown] Loperamide HCl [Imodium] 4 mg PO QID PRN #0 capsule 10/14/15 [Last Taken Unknown ] Metoprolol Tartrate [Lopressor] 25 mg PO BID #60 tab 10/14/15 [Last Taken Unknown] Proair Hfa 2 puff PO Q6H #1 10/14/15 [Last Taken Unknown] Sandostatin Lr 20 mg IM Q30D 10/14/15 [Last Taken Unknown] hydrOXYzine HCL [Atarax] 50 mg PO TID PRN #0 tablet 10/14/15 [Last Taken Unknown ] Albuterol Sulfate/Ipratropium [Duoneb 2.5-0.5MG/3ML Soln] 3 ml IH Q4H PRN #150 vial 12/31/16 [Last Taken Unknown] predniSONE [Prednisone] 3 tab PO DAILY #9 tab 12/31/16 [Last Taken Unknown] Morphine Sulfate [Morphine Sulfate 20 Mg/ml Conc. Oral Solution] 0.25 ml SL Q4H PRN #45 ml 01/23/17 [Last Taken Unknown] - History of Present Illness Narrative: Pt. comes in with c/o shortness of breath for over a month which worsened yesterday. Pt. was released from [facility] after having a thoracentesis there. Pt. has carcinoid CA and was admitted for workup and plan of care for cancer at [facility] until three days ago. Pt. states that his catheters have been leaking and that was treated by this ER two days ago but pt has not had his breathing treatments or his steroids since his return home. Pt. unsure of the plan regarding cancer treatment but would like a drain for his lung if possible. Pt. staes that he has pain all over but denies any specific pain and denies eating since his return home due to lack of apatite. Review of Systems - Review of Systems Constitutional: Present: no symptoms reported. Absent: recent illness, fever, chills, weakness, fatigue, malaise EYE: Present: no symptoms reported ENT: Present: no symptoms reported Respiratory: Present: shortness of breath, cough, orthopnea, wheezing Cardiology: Present: no symptoms reported. Absent: chest pain, palpitations, syncope, edema Gastrointestinal/Abdominal: Present: abdominal pain, eating less, drinking less. Absent: nausea, vomiting, diarrhea, constipation Genitourinary: Present: pain, dysuria, hematuria. Absent: frequency Musculoskeletal: Present: back pain, muscle pain, joint pain Skin: Present: no symptoms reported. Absent: rash, change in color Neurological: Present: no symptoms reported. Absent: headache, dizziness/light- headedness, numbness, tingling All Other Systems: All systems neg except as marked - Patient's Past Medical History Patient History - Medical: Anemia, Anxiety, Depression Patient History - Cardiac/Respiratory: COPD, Hypertension, Hyperlipidemia Patient History - Cancer: Colon, Surgical Treatment Patient History - Surgical Procedures: Appendectomy, Cholecystectomy, Colon Resection, T & A Patient History - Other: None - Family History Mother Family History - Medical: , No pertinent hx Family History - Cardiac/Respiratory: Coronary Heart Disease Father Family History - Medical: , No pertinent hx Family History - Cardiac/Respiratory: No pertinent hx, COPD - Social History Living Situations: home Abuse History: No History of abuse Psych History: No pertinent hx, Hx of Anxiety, Hx of Depression Smoking Status: Former smoker Alcohol Use: none Drug Use: none - Immunizations Immunizations Up to Date: Yes Hx Pneumococcal Vaccination: No History of Influenza Vaccine: No Physical Exam - Physical Exam General Appearance: Present: wd/wn, alert, no apparent distress Eye Exam: Normal inspection: bilateral, PERRL: bilateral, EOMI: bilateral Ears, Nose, Throat: Present: normal ENT inspection, normal pharynx Neck: Present: normal inspection, nontender. Absent: lymphadenopathy (R), lymphadenopathy (L) Respiratory: Present: chest nontender, respiratory distress, accessory muscle use - subcostal, decreased breath sounds - R entire lung. Absent: crackles, rales, rhonchi, stridor, wheezing Cardiovascular/Chest: Present: no murmur, tachycardia Peripheral Pulses: N=norm/S=strong/W=weak/B=bound/A=absent: Carotid (R): Normal , Carotid (L): Normal, Radial (R): Weak, Radial (L): Weak, Femoral (R): Normal, Femoral (L): Normal, Dorsalis-pedis (R): Weak, Dorsalis-pedis (L): Weak Gastrointestinal/Abdominal: Present: normal bowel sounds, nondistended, soft, no organomegaly, tenderness - throughout Back Exam: Present: normal inspection, normal range of motion, no CVA tenderness , no vertebral tenderness Extremity Exam: Present: normal inspection, non-tender, normal range of motion, no edema Neurological Exam: Present: alert, oriented, normal mood/affect, motor weakness - generalized Skin Exam: Present: normal color, warm/dry. Absent: pallor, skin rash ED Progress - Date and Time Seen: Date and Time: 02/15/17 19:01 Dr Trinh came to see the pt. and wants to have him transferred as she feels he is too ill to be admitted here. Discussed with Dr Chacko at [facility] and she agrees to transfer of pt. - Results and Orders Patient's Lab Results:: I have reviewed the patient's lab results. - Vital Signs Patient's Vital Signs:: I have reviewed the patient's vital signs. Vital Signs: Vital Signs 02/15/17 16:08 Temperature 37.1 C Pulse Rate 115 H Respiratory 31 H Rate Blood Pressure 161/77 - X-Ray X-Ray #1 X-Ray: chest Interpretation: Interp. by me X-ray Comments: L tiny basilar pleural effusion and R moderate pleural effusion R sided atelactasis and infiltrates, - Progress/Reassessment Chief Complaint: Dyspnea Departure Clinical Impression: Pleural effusion, Metastatic carcinoid tumor, Dehydration, mild COPD (chronic obstructive pulmonary disease) Qualifiers: COPD type: unspecified COPD Qualified Code(s): J44.9 - Chronic obstructive pulmonary disease, unspecified Sepsis Qualifiers: Sepsis type: sepsis due to unspecified organism Qualified Code(s): A41.9 - Sepsis, unspecified organism - Departure Disposition: [facility] Condition: Serious
[2017-02-15 16:40] LABS: Hematocrit 43.5 % (42.0-52.0); Hemoglobin 13.7 gm/dL (13.5-18.0); Mean Cell Volume 84.3 fl (78-100); Mean Corpuscular Hemoglobin 26.6 pg (27-31); Mean Corpuscular Hgb Conc 31.5 g/dl (32-36); Mean Platelet Volume 9.8 fl (6.0-9.5); Neutrophil # 18.6 K/mm3 (1.3-6.0); Neutrophil % 89.8 % (42-75.0); Platelet Count 450 K/mm3 (150-450); Red Blood Count 5.16 M/mm3 (4.7-6.0); Red Cell Distribution Width 17.4 % (11.5-14.0); White Blood Count 20.8 K/mm3 (4.0-10.5)
[2017-02-15 17:01] LABS: ALT 25 U/L (19-67); AST 35 U/L (0-48); Albumin * 3.4 gm/dl (3.4-5.0); Alkaline Phosphatase * 178 U/L (50-170); Anion Gap 14.6 mmol/L (6.8-13.8); BNP * 1189 pg/mL (5-175); BUN/Creatinine Ratio 21.4 (9.0-21.6); Bilirubin, Total 0.7 mg/dL (0.0-1.1); Blood Urea Nitrogen 40 mg/dL (6-23); Ca. Corrected For Albumin 9.9 mg/dL (8.4-10.2); Calcium * 9.7 mg/dL (7.9-10.9); Carbon Dioxide 33.7 mmol/L (24-32.6); Chloride 98 mmol/L (97-106); Glucose * 128 mg/dL (70-110); Potassium 4.3 mmol/L (3.4-4.6); Sodium 142 mmol/L (132-142); Total Protein 8.6 gm/dL (6.2-8.2)
[2017-02-15 17:03] LABS: Troponin I Less than 0.017 ng/ml (0.00-0.10)
[2017-02-15] MEDS ORDERED: NORMAL SALINE 1,000 ML IV PRN (17:17)
[2017-02-15] MEDS ORDERED: ENOXAPARIN SODIUM 30 MG/0.3 ML SYRG SC ONE ×2 (17:40)
[2017-02-15] MEDS ORDERED: LEVOFLOXACIN/D5W 750 MG/150 ML BAG IV SCH (17:45)
[2017-02-15] MEDS ORDERED: ENOXAPARIN SODIUM 100 MG/ML SYRG SC ONE (18:12)
[2017-02-15] MEDS ORDERED: KETOROLAC TROMETHAMINE 60 MG/2 ML VIAL IM ONE (18:28)
[2017-02-15 19:19] VITALS: BP 172/84
== END 2017-02-15 19:48 | disposition short-term general hospital (02) ==
LOC: ER 15:53
DX: C7A.00 Malignant carcinoid tumor of unspecified site (principal); J91.0 Malignant pleural effusion; E86.0 Dehydration; J44.9 Chronic obstructive pulmonary disease, unspecified; A41.9 Sepsis, unspecified organism; Z85.038 Personal history of other malignant neoplasm of large intestine